=== PATIENT | female | born 1955 | race African-American/Black ===

== ENCOUNTER 2017-02-25 12:09 | Emergency (ER) | payer OTHER, MEDICAID ==
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
[2017-02-25 15:58] VITALS: BP 116/76
== END 2017-02-25 15:55 | disposition home or self-care (01) ==
LOC: ER 12:09
DX: S13.4XXA Sprain of ligaments of cervical spine, initial encounter (principal); M54.2 Cervicalgia; M54.41 Lumbago with sciatica, right side; V49.60XA Unspecified car occupant injured in collision with unspecified motor vehicles in traffic accident, initial encounter; M62.830 Muscle spasm of back; M47.9 Spondylosis, unspecified
CPT/HCPCS: 72040; 72110; 99283

== ENCOUNTER → 2017-07-17 | Outpatient (CLI) | payer MEDICARE, MEDICAID ==
--- NOTE | 2017-07-17 16:31 | WOMENS IMAGING REPORT ---
EXAM DESCRIPTION: BILAT SCREENING MAMMO W/CAD COMPLETED DATE/TIME: 07/17/2017 1:07 pm REASON FOR STUDY: ROUTINE SCREENING;Z12.31 Z12.31 ENCNTR SCREEN MAMMOGRAM FOR MALIGNANT NEOPLASM OF DANITZA COMPARISON: 2012, 2014 TECHNIQUE: Standard craniocaudal and mediolateral oblique views of each breast recorded using [facility] acquisition. LIMITATIONS: None. FINDINGS: No masses, calcifications or architectural distortion. No areas of suspicion. Read with the assistance of CAD. .[facility] - R2 Cenova Version 1.3 .[facility] - R2 Cenova Version 1.3 .[facility] - R2 Cenova Version 2.4 .[facility] - R2 Cenova Version 2.4 .[facility] - R2 Psychiatric Clinical Nurse Specialist Version 9.2 IMPRESSION: NORMAL MAMMOGRAM. BIRADS 1. BREAST DENSITY: b. There are scattered areas of fibroglandular density. BIRAD: 1 NEGATIVE RECOMMENDATION: ROUTINE SCREENING COMMENT: The patient has been notified of the results by letter per SA requirements. Additional no tification policies are in place for contacting patient with suspicious or incomplete findings. Quality ID #[id number]: [employer] [place] [employer] recommends an annual screening mammogram for women aged 40 years or over. This facility utilizes a reminder system to ensure that all patients receive reminder letters, and/or direct phone calls for appointments. This includes reminders for routine scr eening mammograms, diagnostic mammograms, or other Breast Imaging Interventions when appropriate. Th is patient will be placed in the appropriate reminder system. [employer] [place] [employer] (ACR) has developed recommendations for screening MRI of the breast s in certain patient populations, to be used in conjunction with mammography. Breast MRI surveillanc e may be appropriate for women with more than 20% lifetime risk of developing breast cancer as deter mined by genetic testing, significant family history of the disease, or history of mantle radiation f or Hodgkins Disease. ACR Practice Guidelines 2008. TECHNICAL DOCUMENTATION: FINDING NUMBER: (1) ASSESSMENT: (1) JOB ID: [id number] [employer]- All Rights Reserved Reading location - IP/workstation name: [email or web address]
== END ==
LOC: WI 12:34
PROVIDERS: ATTEND Family Medicine
DX: Z12.31 Encounter for screening mammogram for malignant neoplasm of breast (principal)
CPT/HCPCS: 77067

== ENCOUNTER 2018-08-24 07:05 | Emergency (ER) | payer MEDICARE, MEDICAID ==
--- NOTE | 2018-08-24 08:18 | ER Document Report ---
ED Extremity Problem, Lower - General Chief Complaint: Leg Pain Stated Complaint: LEG PAIN Time Seen by Provider: 08/24/18 08:17 Primary Care Provider: ELLIE MERCADO MD [Primary Care Provider] - Follow up as needed Notes: 62-year-old female patient emergency department chief complaint of right leg/calf pain. Radiates behind the calf and up behind her leg on the right side. No back pain. No trauma. No prior history of blood clots or DVTs. States that it feels like a charley horse but will not go away. TRAVEL OUTSIDE OF THE [place] IN LAST 30 DAYS: No - HPI Patient complains to provider of: Pain Location: Leg Occurred: Yesterday Where: Home Onset/Duration: Gradual, Worse Quality of pain: Achy Severity: Moderate Pain Level: 3 Recent injury: No Associated symptoms: denies: Chest pain, Rapid heart rate, Short of breath - Related Data Allergies/Adverse Reactions: No Known Allergies Allergy (Unverified 11/09/12 14:10) Past Medical History - General Information source: Patient - Social History Smoking Status: Current Every Day Smoker Chew tobacco use (# tins/day): No Frequency of alcohol use: None Drug Abuse: None Lives with: Spouse/Significant other Family History: Reviewed & Not Pertinent Patient has suicidal ideation: No Patient has homicidal ideation: No - Past Medical History Cardiac Medical History: Pulmonary Medical History: Neurological Medical History: Renal/ Medical History: Denies: Hx Peritoneal Dialysis GI Medical History: Infectious Medical History: Past Surgical History: Review of Systems - Review of Systems Notes: Constitutional: denies: Chills, Diaphoresis, Fever, Malaise, Weakness EENT: denies: Eye discharge, Blurred vision, Tearing, Double vision, Nose congestion, Nose discharge, Throat swelling, Mouth pain Cardiovascular: denies: Palpitations, Heart racing, Orthopnea, Dyspnea, Chest pain Respiratory: denies: Cough, Hurts to breathe, Wheezing, Shortness of breath Gastrointestinal: denies: Abdominal pain, Diarrhea, Nausea, Vomiting, Black stools, bright red blood in stool Genitourinary: denies: Burning, Dysuria, Discharge, Frequency, Flank pain, Hematuria Musculoskeletal: denies: Joint pain, Joint swelling, +Muscle pain,+ Muscle stiffness,- back pain Hematologic/Lymphatic: denies: Anemia, Easy bleeding, Easy bruising, Blood clots Neurological/Psychological: denies: Confusion, Dementia, Depression, Loss of consciousness Skin: No lesions, no masses, no skin breakdown, no abscesses Physical Exam - Vital signs Vitals: Temp Pulse Resp BP Pulse Ox 97.4 F 78 18 125/76 96 08/24/18 07:10 08/24/18 07:10 08/24/18 07:10 08/24/18 07:10 08/24/18 07:10 Interpretation: Normal - General General appearance: Appears well, Alert - HEENT Head: Normocephalic, Atraumatic Eyes: Normal Pupils: PERRL - Respiratory Respiratory status: No respiratory distress Chest status: Nontender Breath sounds: Normal Chest palpation: Normal - Cardiovascular Rhythm: Regular Heart sounds: Normal auscultation Murmur: No - Abdominal Inspection: Normal Distension: No distension Bowel sounds: Normal Tenderness: Nontender Organomegaly: No organomegaly - Back Back: Normal, Nontender - Extremities General upper extremity: Normal inspection, Nontender, Normal color, Normal ROM, Normal temperature. No: Edema General lower extremity: Normal inspection, Tender - Tenderness to palpation in the right posterior calf, Normal color, Normal ROM, Normal temperature, Normal weight bearing. No: Edema, Hannah's sign - Neurological Neuro grossly intact: Yes Cognition: Normal Orientation: AAOx4 Bruce Coma Scale Eye Opening: Spontaneous [place] Coma Scale Verbal: Oriented Bruce Coma Scale Motor: Obeys Commands [place] Coma Scale Total: 15 Speech: Normal Motor strength normal: LUE, RUE, LLE, RLE Sensory: Normal - Psychological Associated symptoms: Normal affect, Normal mood - Skin Skin Temperature: Warm Skin Moisture: Dry Skin Color: Normal Course - Re-evaluation Re-evalutation: 08/24/18 10:24 Verbal report from the certified cytotechnologist is that there is no evidence of a DVT. At this time I am treating with some pain medication. Find nothing further at this time. Has good pulses. Will discharge in stable condition with right calf pain. - Vital Signs Vital signs: Temp Pulse Resp BP Pulse Ox 98.2 F 78 16 125/76 96 08/24/18 08:10 08/24/18 07:10 08/24/18 08:10 08/24/18 07:10 08/24/18 07:10 Discharge - Discharge Clinical Impression: Right leg pain Condition: Good Disposition: HOME, SELF-CARE Instructions: Leg Pain Nonspecific ([facility]) Additional Instructions: No evidence of DVT. At this time uncertain etiology of the pain. It would be very important that you follow-up with your primary care doctor. You may need a repeat ultrasound in 7 to 10 days to make sure there is no blood clot. I am prescribing you a short course of some anti-inflammatory and pain medication that you can take. Please follow-up with your regular doctor. Return for worsening symptoms or concerns per Prescriptions: Hydrocodone/Acetaminophen [Emerson 5-325 mg Tablet] 1 tab PO TID PRN 3 Days #9 tablet PRN Reason: For Breakthrough Pain Ibuprofen [Motrin 800 mg Tablet] 800 mg PO Q8H PRN 7 Days #21 tab PRN Reason: For Pain Scale 3-4 Referrals: ELLIE MERCADO MD [Primary Care Provider] - Follow up as needed
[2018-08-24] MEDS ORDERED: KETOROLAC TROMETHAMINE 60 MG/2 ML SDV IM ONE (08:32)
[2018-08-24] MEDS ORDERED: HYDROCODONE/ACETAMINOPHEN 5-325 MG TABLET PO ONE (08:32)
[2018-08-24 10:35] VITALS: BP 117/63
--- NOTE | 2018-08-24 10:59 | RADIOLOGY REPORT (SQ) ---
EXAM DESCRIPTION: VENOUS UNILATERAL LOWER COMPLETED DATE/TIME: 08/24/2018 10:49 am REASON FOR STUDY: right leg/calf pain COMPARISON: None. TECHNIQUE: Dynamic and static pitt scale and color images acquired of the right leg venous system. S elected spectral images acquired with additional compression and augmentation maneuvers. The contrala teral common femoral vein and saphenofemoral junction were also imaged. Images stored on PACS. LIMITATIONS: None. FINDINGS: COMMON FEMORAL: Normal phasicity, compression and augmentation. No visualized echogenic ma terial on pitt scale. No defects on color images. FEMORAL: Normal compression and augmentation. No visualized echogenic material on pitt scale. No defe cts on color images. POPLITEAL: Normal compression, augmentation. No visualized echogenic material on pitt scale. No defec ts on color images. CALF VESSELS: Normal compression, augmentation. No visualized echogenic material on pitt scale. No de fects on color images. GSV and SSV: Normal compression, augmentation. No visualized echogenic material on pitt scale. No def ects on color images. ANY DEEP VENOUS INSUFFICIENCY: No. ANY EVIDENCE OF POPLITEAL CYST: No. OTHER: No other significant finding. CONTRALATERAL COMMON FEMORAL VEIN AND SAPHENOFEMORAL JUNCTION: Normal phasicity, compression and augmentation. No visualized echogenic material on pitt scale. No de fects on color images. IMPRESSION: NO EVIDENCE OF DVT OR SVT IN THE RIGHT LEG. TECHNICAL DOCUMENTATION: JOB ID: [id number] [employer]- All Rights Reserved Reading location - IP/workstation name: [email or web address]
== END 2018-08-24 10:35 | disposition home or self-care (01) ==
LOC: ER 07:05
DX: M79.604 Pain in right leg (principal); F17.200 Nicotine dependence, unspecified, uncomplicated
CPT/HCPCS: 99283; 96372; 93971; J1885; A9270

== ENCOUNTER 2018-09-05 05:22 | Inpatient (IN) | payer MEDICARE, MEDICAID ==
[2018-09-05 06:15] LABS: APPEARANCE,URINE CLOUDY; BILIRUBIN,URINE NEGATIVE (NEGATIVE); COLOR,URINE YELLOW; GLUCOSE, URINE NEGATIVE (NEGATIVE); KETONES,URINE NEGATIVE (NEGATIVE); LEUKOCYTE ESTERASE,URINE NEGATIVE (NEGATIVE); NITRITE,URINE NEGATIVE (NEGATIVE); PROTEIN,URINE NEGATIVE (NEGATIVE); URINE SPECIFIC GRAVITY 1.013
[2018-09-05 07:02] LABS: ABSOLUTE BASOPHILS # (AUTO) 0.1 10^3/uL (0.0-0.2); ABSOLUTE EOSINOPHILS # (AUTO) 0.1 10^3/uL (0.0-0.6); ABSOLUTE LYMPHOCYTES (AUTO) 2.6 10^3/uL (0.5-4.7); ABSOLUTE MONOCYTES (AUTO) 0.8 10^3/uL (0.1-1.4); ABSOLUTE NEUT (AUTO) 6.7 10^3/uL (1.7-8.2); BASOPHILS % (AUTO) 0.6 % (0-2); EOSINOPHILS % (AUTO) 0.8 % (0-6); HEMATOCRIT 44.8 % (36.0-47.0); HEMOGLOBIN 15.3 g/dL (12.0-15.5); LYMPHOCYTES % (AUTO) 25.5 % (13-45); MEAN CORPUSCULAR HEMOGLOBIN 32.3 pg (27.0-33.4); MEAN CORPUSCULAR HGB CONC 34.1 g/dL (32.0-36.0); MEAN CORPUSCULAR VOLUME 95 fl (80-97); MONOCYTES % (AUTO) 7.9 % (3-13); PLATELET COUNT 257 10^3/uL (150-450); RED BLOOD COUNT 4.73 10^6/uL (3.72-5.28); SEGMENTED NEUTROPHILS % (AUTO) 65.2 % (42-78); TOTAL CELLS COUNTED % (AUTO) 100 %; WHITE BLOOD COUNT 10.3 10^3/uL (4.0-10.5)
[2018-09-05] MEDS ORDERED: ASPIRIN 81 MG TABLET, CHEWABLE PO ONE ×2 (07:03→07:32)
[2018-09-05] MEDS ORDERED: NORMAL SALINE 1000 ML 1,000 ML IV ONE (07:13)
[2018-09-05] MEDS ORDERED: ONDANSETRON HCL INJ/PF 4 MG/2 ML SDV IV ONE (07:13)
[2018-09-05] MEDS ORDERED: MORPHINE SULFATE 10 MG/ML INJ IV ONE (07:14)
[2018-09-05 07:19] LABS: ALANINE AMINOTRANSFERASE 45 U/L (9-52); ALBUMIN 4.1 g/dL (3.5-5.0); ALKALINE PHOSPHATASE 108 U/L (38-126); ANION GAP 7 (5-19); ASPARTATE AMINO TRANSFERASE 43 U/L (14-36); BLOOD UREA NITROGEN 12 mg/dL (7-20); CALCIUM 9.4 mg/dL (8.4-10.2); CARBON DIOXIDE 28 mmol/L (22-30); CHLORIDE 104 mmol/L (98-107); GLUCOSE 91 mg/dL (75-110); POTASSIUM 3.5 mmol/L (3.6-5.0); SODIUM 139.1 mmol/L (137-145)
[2018-09-05 07:20] LABS: BILIRUBIN,DIRECT 0.3 mg/dL (0.0-0.4); BILIRUBIN,TOTAL 0.6 mg/dL (0.2-1.3); TOTAL PROTEIN 7.5 g/dL (6.3-8.2)
[2018-09-05 07:36] LABS: LIPASE 6991.1 U/L (23-300)
--- NOTE | 2018-09-05 07:37 | ER Document Report ---
ED Medical Screen (RME) - General Chief Complaint: Abdominal Pain Stated Complaint: STOMACH ACHE Time Seen by Provider: 09/05/18 07:12 Primary Care Provider: ELLIE MERCADO MD [Primary Care Provider] - Follow up as needed Notes: Patient is a 62-year-old female who presents the emergency department with a chief complaint of abdominal pain. She states her pain started 6 to 7 hours prior to arrival to the emergency department. Her pain is in her mid abdomen and it radiates to her back. She states that her last problem was today. She does have some nausea and she vomited once. According to the nursing staff, she also complained of chest pain. Exam: Tenderness noted to abdomen. I have greeted and performed a rapid initial assessment of this patient. A comprehensive ED assessment and evaluation of the patient, analysis of test results and completion of medical decision making process will be conducted by an additional ED providers. TRAVEL OUTSIDE OF THE [place] IN LAST 30 DAYS: No - Related Data Allergies/Adverse Reactions: No Known Allergies Allergy (Unverified 11/09/12 14:10) Past Medical History - Past Medical History Cardiac Medical History: Pulmonary Medical History: Neurological Medical History: Renal/ Medical History: Denies: Hx Peritoneal Dialysis GI Medical History: Infectious Medical History: Past Surgical History: Physical Exam - Vital signs Vitals: Temp Pulse Resp BP Pulse Ox 97.6 F 84 32 H 139/94 H 99 09/05/18 05:29 09/05/18 05:29 09/05/18 05:29 09/05/18 05:29 09/05/18 05:29 Course - Vital Signs Vital signs: Temp Pulse Resp BP Pulse Ox 97.6 F 84 23 H 153/92 H 99 09/05/18 05:29 09/05/18 05:29 09/05/18 07:01 09/05/18 07:00 09/05/18 05:29 - Laboratory Result Diagrams: 09/05/18 06:50 09/05/18 06:50 Laboratory results interpreted by me: 09/05/18 09/05/18 05:58 06:50 Potassium 3.5 L AST 43 H Lipase 6991.1 H Urine Urobilinogen 2.0 H Doctor's Discharge - Discharge Referrals: ELLIE MERCADO MD [Primary Care Provider] - Follow up as needed
--- NOTE | 2018-09-05 07:47 | ER Document Report ---
ED Medical Screen (RME) - General Chief Complaint: Abdominal Pain Stated Complaint: STOMACH ACHE Time Seen by Provider: 09/05/18 07:12 Primary Care Provider: ELLIE MERCADO MD [Primary Care Provider] - Follow up as needed TRAVEL OUTSIDE OF THE [place] IN LAST 30 DAYS: No - Related Data Allergies/Adverse Reactions: No Known Allergies Allergy (Unverified 11/09/12 14:10) Past Medical History - Past Medical History Cardiac Medical History: Pulmonary Medical History: Neurological Medical History: Renal/ Medical History: Denies: Hx Peritoneal Dialysis GI Medical History: Infectious Medical History: Past Surgical History: Physical Exam - Vital signs Vitals: Temp Pulse Resp BP Pulse Ox 97.6 F 84 32 H 139/94 H 99 09/05/18 05:29 09/05/18 05:29 09/05/18 05:29 09/05/18 05:29 09/05/18 05:29 Course - Vital Signs Vital signs: Temp Pulse Resp BP Pulse Ox 97.6 F 84 23 H 153/92 H 99 09/05/18 05:29 09/05/18 05:29 09/05/18 07:01 09/05/18 07:00 09/05/18 05:29 - Laboratory Result Diagrams: 09/05/18 06:50 09/05/18 06:50 Laboratory results interpreted by me: 09/05/18 09/05/18 05:58 06:50 Potassium 3.5 L AST 43 H Lipase 6991.1 H Urine Urobilinogen 2.0 H Doctor's Discharge - Discharge Referrals: ELLIE MERCADO MD [Primary Care Provider] - Follow up as needed
--- NOTE | 2018-09-05 07:48 | ER Document Report ---
ED General - General Chief Complaint: Abdominal Pain Stated Complaint: STOMACH ACHE Time Seen by Provider: 09/05/18 07:12 Notes: Patient is a 62-year-old female who presents the emergency department with a chief complaint of abdominal pain. She states her pain started 6 to 7 hours prior to arrival to the emergency department. Her pain is in her mid abdomen and it radiates to her back. She states that her last problem was today. She does have some nausea and she vomited once. According to the nursing staff, she also complained of chest pain. Patient reports that she drinks 1-2 beers every day. She also admits to cocaine use. TRAVEL OUTSIDE OF THE [place] IN LAST 30 DAYS: No - Related Data Allergies/Adverse Reactions: No Known Allergies Allergy (Unverified 11/09/12 14:10) Past Medical History - Social History Smoking Status: Unknown if Ever Smoked Family History: Reviewed & Not Pertinent Patient has suicidal ideation: No Patient has homicidal ideation: No - Past Medical History Cardiac Medical History: Pulmonary Medical History: Neurological Medical History: Renal/ Medical History: Denies: Hx Peritoneal Dialysis GI Medical History: Infectious Medical History: Past Surgical History: Review of Systems - Review of Systems Notes: REVIEW OF SYSTEMS: CONSTITUTIONAL : Denies recent illness. Denies recent unintentional weight loss. Denies fever, chills, or sweats. EENT: Denies eye, ear, throat, or mouth pain, discharge, or symptoms. Denies nasal or sinus congestion. CARDIOVASCULAR: See HPI RESPIRATORY: Denies shortness of breath, cough, congestion, difficulty b reathing, or wheezing. GASTROINTESTINAL: See HPI GENITOURINARY: Denies difficulty urinating, burning, blood in urine, urgency or frequency. MUSCULOSKELETAL: Denies neck and back pain. Denies joint pain or swelling. SKIN: Denies rash, itchiness, or lesions HEMATOLOGIC : Denies easy bruising or bleeding. LYMPHATIC: Denies swollen, painful, enlarged glands. NEUROLOGICAL: Denies no numbness or tingling denies weakness. Denies headache. Denies altered mental status. Denies alteration in speech. PSYCHIATRIC: Denies stress, anxiety, alteration in sleep patterns, or depression. All other systems reviewed and negative. Physical Exam - Vital signs Vitals: Temp Pulse Resp BP Pulse Ox 97.6 F 84 32 H 139/94 H 99 09/05/18 05:29 09/05/18 05:29 09/05/18 05:29 09/05/18 05:29 09/05/18 05:29 - Notes Notes: PHYSICAL EXAMINATION: GENERAL: Appears well, healthy, well-nourished, no acute distress. HEAD: Normocephalic, atraumatic. EYES: PERRL, conjunctiva normal, all extraocular movements intact, sclera nonicteric ENT: Dry mucous membranes. NECK: Supple, no noticeable swelling, redness, rash. Normal range of motion. LUNGS: Equal breath sounds bilaterally and clear to auscultation. No wheezes rales or rhonchi. CARDIOVASCULAR: S1-S2, regular rate, regular rhythm. Radial pulses 2+, normal. ABDOMEN: Normoactive bowel sounds. Soft, tender mid upper abdomen, no guarding, no rebound tenderness, and no masses palpated. EXTREMITIES: Normal strength and range of motion, no pitting or edema. No cyanosis. NEUROLOGICAL: Moves all extremities upon command. Strength 5/5 in all extremities. PSYCH: Normal mood, normal affect. SKIN: Warm, dry. No rash, lesions, ulcerations noted. Normal skin turgor. Course - Re-evaluation Re-evalutation: 09/05/18 07:50 Patient's lipase is greater than 6000. Claudia is able to open up to me and tell me that she drinks 2 beers a day. She also smokes cocaine. CBC is unremarkable. Chemistries are also unremarkable. 09/05/18 08:22 Patient's troponin is negative at this time. Her CK is mildly elevated, most likely due to her having abdominal pain. Her chest x-ray shows atelectasis, most likely because she is not taking good deep breaths and due to her pain. I spoke with Dr. Rojas and the patient will be admitted to the medical floor. - Vital Signs Vital signs: Temp Pulse Resp BP Pulse Ox 98.0 F 84 17 145/91 H 100 09/05/18 09:00 09/05/18 05:29 09/05/18 09:01 09/05/18 09:00 09/05/18 09:01 - Laboratory Result Diagrams: 09/05/18 06:50 09/05/18 06:50 Laboratory results interpreted by me: 09/05/18 09/05/18 09/05/18 05:58 06:50 06:50 Potassium 3.5 L AST 43 H Creatine Kinase 164 H Lipase 6991.1 H Urine Urobilinogen 2.0 H - EKG Interpretation by Me Additional EKG results interpreted by me: 09/05/18 07:53 Sinus rhythm. Rate 82. VT 132; QRS 84; QT 380; QTc 444. No ST elevations or depressions noted. Discharge - Discharge Clinical Impression: Cocaine abuse Alcoholic pancreatitis Qualifiers: Chronicity: acute Acute pancreatitis complication: unspecified Qualified Code(s): K85.20 - Alcohol induced acute pancreatitis without necrosis or in fection Abdominal pain Qualifiers: Abdominal location: epigastric Qualified Code(s): R10.13 - Epigastric pain Chest pain Qualifiers: Chest pain type: other chest pain Qualified Code(s): R07.89 - Other chest pain Condition: Stable Disposition: ADMITTED INPATIENT Admitting Provider: Crystal (Hospitalist) Unit Admitted: Medical Floor
--- NOTE | 2018-09-05 08:08 | RADIOLOGY REPORT (SQ) ---
EXAM DESCRIPTION: CHEST SINGLE VIEW COMPLETED DATE/TIME: 09/05/2018 7:53 am REASON FOR STUDY: chest pain COMPARISON: None. EXAM PARAMETERS: NUMBER OF VIEWS: One view. TECHNIQUE: Single frontal radiographic view of the chest acquired. RADIATION DOSE: NA LIMITATIONS: None. FINDINGS: LUNGS AND PLEURA: No opacities, masses or pneumothorax. No pleural effusion. Bibasilar at electasis. MEDIASTINUM AND HILAR STRUCTURES: No masses. Contour normal. HEART AND VASCULAR STRUCTURES: Heart normal in size. Normal vasculature. BONES: No acute findings. HARDWARE: None in the chest. OTHER: No other significant finding. IMPRESSION: Bibasilar atelectasis. TECHNICAL DOCUMENTATION: JOB ID: [id number] [employer]- All Rights Reserved Reading location - IP/workstation name: [email or web address]
[2018-09-05 08:13] LABS: CREATINE KINASE MB 0.97 ng/mL (<4.55)
[2018-09-05 08:14] LABS: TROPONIN I < 0.012 ng/mL
[2018-09-05 08:21] LABS: URINE AMPHETAMINES SCREEN NEGATIVE; URINE BARBITURATES SCREEN NEGATIVE; URINE BENZODIAZEPINES SCREEN NEGATIVE; URINE COCAINE SCREEN UNCONFIRMED POSITIVE; URINE MARIJUANA (THC) SCREEN NEGATIVE; URINE METHADONE SCREEN NEGATIVE; URINE PHENCYCLIDINE SCREEN NEGATIVE
[2018-09-05] MEDS ORDERED: IPRATROPIUM/ALBUTEROL 0.5-2.5 MG/3 ML AMPUL NEB PRN (10:26)
[2018-09-05] MEDS ORDERED: TEMAZEPAM 7.5 MG CAPSULE PO PRN (10:26)
[2018-09-05] MEDS ORDERED: ONDANSETRON HCL INJ/PF 4 MG/2 ML SDV IV PRN (10:26)
[2018-09-05] MEDS ORDERED: PROMETHAZINE HCL INJ 25 MG/1 ML VIAL IV PRN (10:26)
--- NOTE | 2018-09-05 12:13 | EKG REPORT ---
SEVERITY:- NORMAL ECG - SINUS RHYTHM : Confirmed by: Lydia Akers MD 05-Sep-2018 12:12:44
[2018-09-05] MEDS: MORPHINE SULFATE 10 MG/ML INJ IV PRN ×3 (12:26→20:54)
[2018-09-05 12:31] LABS: CHOLESTEROL 206.68 mg/dL (0-200); TRIGLYCERIDES 138 mg/dL (<150)
[2018-09-05] MEDS: THIAMINE HCL 100 MG TABLET PO SCH (12:38)
[2018-09-05] MEDS: FOLIC ACID 1 MG TABLET PO SCH (12:38)
[2018-09-05] MEDS: NORMAL SALINE 1000 ML 1,000 ML IV PRN ×3 (12:39→22:50)
[2018-09-05 12:42] LABS: DIRECT LDL 60 mg/dL (<100)
[2018-09-05] MEDS: PANTOPRAZOLE SODIUM 40 MG TABLET.DR PO SCH (17:42)
--- NOTE | 2018-09-05 18:27 | PDOC H&P ---
History of Present Illness Admission Date/PCP: 09/05/18 08:48 History of Present Illness: JANETH NESS is a 62 year old female past medical history of EtOH abuse, cocaine abuse, presenting to ED complaining of abdominal pain starting 7 hours prior to arrival, associated with with nausea and nonbilious nonbloody vomiting. She has been drinking about 1-2 beers every day since she was very young, occasionally does binge drinking. Last binge drinking x1 week, admits to using cocaine. She describes the pain as sharp, 8/10, constant, radiating to her back, worse with movement and eating, better with rest. She is nauseous and vomited once however she is able to tolerate p.o. intake. She passes flatus but has not had a bowel movement. Denies any fever, chills, nausea, vomiting, diarrhea, constipation, hyperlipidemia, abdominal trauma, prior pancreatitis. Past Medical History Cardiac Medical History: Pulmonary Medical History: Neurological Medical History: GI Medical History: Psychiatric Medical History: Reports: Depression Hematology: Past Surgical History Past Surgical History: Social History Smoking Status: Current Some Day Smoker Cigarettes Packs Per Day: 0.2 Number of Years Smokin Last Time Smoked: yesterday Frequency of Alcohol Use: Heavy Hx Recreational Drug Use: Yes Drugs: Cocaine Hx Prescription Drug Abuse: No Family History Family History: Reviewed & Not Pertinent Parental Family History Reviewed: Yes Children Family History Reviewed: Yes Sibling(s) Family History Reviewed.: Yes Medication/Allergy Home Medications: Ascorbic Acid [Vitamin C 500 mg Tablet] 500 mg PO DAILY 09/05/18 Cyanocobalamin (Vitamin B-12) [Vitamin B-12 1000 Mcg Tablet] 1,000 mcg PO DAILY 09/05/18 Allergies/Adverse Reactions: No Known Allergies Allergy (Unverified 11/09/12 14:10) Review of Systems Review of Systems: as per hpi Physical Exam Vital Signs: Temp Pulse Resp BP Pulse Ox 98.2 F 84 20 130/86 H 93 09/05/18 12:00 09/05/18 12:23 09/05/18 12:23 09/05/18 12:00 09/05/18 12:23 Intake & Output 09/04/18 09/05/18 09/06/18 06:59 06:59 06:59 Intake Total 1999 Balance 1999 Weight 68.039 kg General appearance: PRESENT: no acute distress, well-developed, well-nourished Head exam: PRESENT: atraumatic, normocephalic Respiratory exam: PRESENT: clear to auscultation thanh. ABSENT: rales, rhonchi, wheezes Cardiovascular exam: PRESENT: RRR. ABSENT: diastolic murmur, rubs, systolic murmur GI/Abdominal exam: PRESENT: guarding, normal bowel sounds, soft, tenderness. ABSENT: distended, mass, organolmegaly, rebound Extremities exam: PRESENT: full ROM. ABSENT: calf tenderness, clubbing, pedal edema Neurological exam: PRESENT: alert, awake, oriented to person, oriented to place, oriented to time, oriented to situation, CN II-XII grossly intact. ABSENT: motor sensory deficit Skin exam: PRESENT: dry, intact, warm. ABSENT: cyanosis, rash Results Laboratory Results: 09/05/18 06:50 09/05/18 06:50 09/05/18 09/05/18 09/05/18 05:58 06:50 06:50 WBC 10.3 RBC 4.73 Hgb 15.3 Hct 44.8 MCV 95 MCH 32.3 MCHC 34.1 RDW 13.0 Plt Count 257 Seg Neutrophils % 65.2 Lymphocytes % 25.5 Monocytes % 7.9 Eosinophils % 0.8 Basophils % 0.6 Absolute Neutrophils 6.7 Absolute Lymphocytes 2.6 Absolute Monocytes 0.8 Absolute Eosinophils 0.1 Absolute Basophils 0.1 Sodium 139.1 Potassium 3.5 L Chloride 104 Carbon Dioxide 28 Anion Gap 7 BUN 12 Creatinine 0.64 Est GFR ( Amer) > 60 Est GFR (Non-Af Amer) > 60 Glucose 91 Calcium 9.4 Total Bilirubin 0.6 AST 43 H ALT 45 Alkaline Phosphatase 108 Total Protein 7.5 Albumin 4.1 Triglycerides Cholesterol LDL Cholesterol Direct VLDL Cholesterol HDL Cholesterol Lipase 6991.1 H Urine Color YELLOW Urine Appearance CLOUDY Urine pH 9.0 Ur Specific [place] 1.013 Urine Protein NEGATIVE Urine Glucose (UA) NEGATIVE Urine Ketones NEGATIVE Urine Blood NEGATIVE Urine Nitrite NEGATIVE Ur Leukocyte Esterase NEGATIVE Urine WBC (Auto) 2 Urine RBC (Auto) 0 09/05/18 06:50 WBC RBC Hgb Hct MCV MCH MCHC RDW Plt Count Seg Neutrophils % Lymphocytes % Monocytes % Eosinophils % Basophils % Absolute Neutrophils Absolute Lymphocytes Absolute Monocytes Absolute Eosinophils Absolute Basophils Sodium Potassium Chloride Carbon Dioxide Anion Gap BUN Creatinine Est GFR ( Amer) Est GFR (Non-Af Amer) Glucose Calcium Total Bilirubin AST ALT Alkaline Phosphatase Total Protein Albumin Triglycerides 138 Cholesterol 206.68 H LDL Cholesterol Direct 60 VLDL Cholesterol 28.0 HDL Cholesterol 115 Lipase Urine Color Urine Appearance Urine pH Ur Specific [place] Urine Protein Urine Glucose (UA) Urine Ketones Urine Blood Urine Nitrite Ur Leukocyte Esterase Urine WBC (Auto) Urine RBC (Auto) 09/05/18 09/05/18 06:50 06:50 Creatine Kinase 164 H CK-MB (CK-2) 0.97 Troponin I < 0.012 Impressions: Chest X-Ray 09/05/18 07:06 IMPRESSION: Bibasilar atelectasis. Assessment and Plan - Diagnosis (1) Acute alcoholic pancreatitis Qualifiers: Acute pancreatitis complication: unspecified Qualified Code(s): K85.20 - Alcohol induced acute pancreatitis without necrosis or infection Is this a current diagnosis for this admission?: Yes Plan: Likely induced by recent binge drinking. Aggressive volume resuscitation guided by volume status, opioid analgesics, monitor electrolytes, advance diet as tolerated, antiemetics. (2) ETOH abuse Is this a current diagnosis for this admission?: Yes Plan: Current every day drinker. Drinks about 1-2 beers per day. Monitor for withdrawal. Thiamine and folic acid. Benzos as needed. (3) Cocaine abuse Is this a current diagnosis for this admission?: No Plan: EKG NSR. Troponins <0.012. UDS positive for cocaine. Denies any chest pain. Monitor for withdrawals.
[2018-09-06] MEDS: ACETAMINOPHEN 325 MG TABLET PO PRN (01:29)
[2018-09-06 05:02] LABS: HEMOGLOBIN 13.7 g/dL (12.0-15.5); MEAN CORPUSCULAR HEMOGLOBIN 32.4 pg (27.0-33.4); MEAN CORPUSCULAR HGB CONC 34.3 g/dL (32.0-36.0); MEAN CORPUSCULAR VOLUME 95 fl (80-97); PLATELET COUNT 195 10^3/uL (150-450); RED BLOOD COUNT 4.24 10^6/uL (3.72-5.28); RED CELL DISTRIBUTION WIDTH 12.9 % (11.5-14.0); WHITE BLOOD COUNT 8.5 10^3/uL (4.0-10.5)
[2018-09-06 05:21] LABS: ANION GAP 6 (5-19); BLOOD UREA NITROGEN 8 mg/dL (7-20); CALCIUM 8.2 mg/dL (8.4-10.2); CARBON DIOXIDE 25 mmol/L (22-30); CHLORIDE 106 mmol/L (98-107); GLUCOSE 87 mg/dL (75-110); POTASSIUM 3.6 mmol/L (3.6-5.0); SODIUM 136.7 mmol/L (137-145)
[2018-09-06] MEDS: MORPHINE SULFATE 10 MG/ML INJ IV PRN ×4 (05:31→23:10)
[2018-09-06] MEDS: PANTOPRAZOLE SODIUM 40 MG TABLET.DR PO SCH ×2 (05:32→16:39)
[2018-09-06] MEDS: NORMAL SALINE 1000 ML 1,000 ML IV PRN ×2 (09:16→20:40)
[2018-09-06] MEDS: FOLIC ACID 1 MG TABLET PO SCH (09:29)
[2018-09-06] MEDS: THIAMINE HCL 100 MG TABLET PO SCH (09:29)
[2018-09-06] MEDS: ENOXAPARIN SODIUM INJ 40 MG/0.4 ML DISP.SYRIN SUBCUT SCH (09:29)
--- NOTE | 2018-09-06 11:36 | PDOC PROGRESS REPORT ---
Subjective Progress Note for:: 09/06/18 Reason For Visit: JANETH NESS is a 62 year old female past medical history of EtOH abuse, cocaine abuse, presenting to ED complaining of abdominal pain starting 7 hours prior to arrival, associated with with nausea and nonbilious nonbloody vomiting. She has been drinking about 1-2 beers every day since she was very young, occasionally does binge drinking. Last binge drinking x1 week, admits to using cocaine. She describes the pain as sharp, 8/10, constant, radiating to her back, worse with movement and eating, better with rest. She is nauseous and vomited once however she is able to tolerate p.o. intake. She passes flatus but has not had a bowel movement. Denies any fever, chills, nausea, vomiting, diarrhea, constipation, hyperlipidemia, abdominal trauma, prior pancreatitis. 09/06/2018. No acute events overnight. Patient is still reporting persistent epigastric abdominal pain, much improved since yesterday, has not passed flatus, has not had a bowel movement, was able to tolerate clear liquid. Denies any fever, chills, nausea, vomiting, diarrhea, constipation or any urinary symptoms. Physical Exam Vital Signs: Temp Pulse Resp BP Pulse Ox 98.2 F 99 18 123/75 93 09/06/18 08:00 09/06/18 09:20 09/06/18 09:20 09/06/18 08:00 09/06/18 09:20 Intake & Output 09/05/18 09/06/18 09/07/18 06:59 06:59 06:59 Intake Total 4000 Balance 4000 Weight 68.039 kg 71.4 kg General appearance: PRESENT: no acute distress, well-developed, well-nourished Head exam: PRESENT: atraumatic, normocephalic Eye exam: PRESENT: conjunctiva pink, EOMI, PERRLA. ABSENT: scleral icterus Ear exam: PRESENT: normal external ear exam Mouth exam: PRESENT: moist, tongue midline Neck exam: ABSENT: carotid bruit, JVD, lymphadenopathy, thyromegaly Respiratory exam: PRESENT: clear to auscultation thanh. ABSENT: rales, rhonchi, wheezes Cardiovascular exam: PRESENT: RRR. ABSENT: diastolic murmur, rubs, systolic murmur Pulses: PRESENT: normal dorsalis pedis pul Vascular exam: PRESENT: normal capillary refill GI/Abdominal exam: PRESENT: normal bowel sounds, tenderness - epigastric. ABSENT: distended, guarding, mass, organolmegaly, rebound Rectal exam: PRESENT: deferred Extremities exam: PRESENT: full ROM. ABSENT: calf tenderness, clubbing, pedal edema Neurological exam: PRESENT: alert, awake, oriented to person, oriented to place, oriented to time, oriented to situation, CN II-XII grossly intact. ABSENT: motor sensory deficit Psychiatric exam: PRESENT: appropriate affect, normal mood. ABSENT: homicidal ideation, suicidal ideation Skin exam: PRESENT: dry, intact, warm. ABSENT: cyanosis, rash Results Laboratory Results: 09/06/18 04:36 09/06/18 04:36 09/05/18 09/06/18 09/06/18 06:50 04:36 04:36 WBC 8.5 RBC 4.24 Hgb 13.7 Hct 40.0 MCV 95 MCH 32.4 MCHC 34.3 RDW 12.9 Plt Count 195 Sodium 136.7 L Potassium 3.6 Chloride 106 Carbon Dioxide 25 Anion Gap 6 BUN 8 Creatinine 0.58 Est GFR ( Amer) > 60 Est GFR (Non-Af Amer) > 60 Glucose 87 Calcium 8.2 L Triglycerides 138 Cholesterol 206.68 H LDL Cholesterol Direct 60 VLDL Cholesterol 28.0 HDL Cholesterol 115 09/05/18 09/05/18 06:50 06:50 Creatine Kinase 164 H CK-MB (CK-2) 0.97 Troponin I < 0.012 Impressions: Chest X-Ray 09/05/18 07:06 IMPRESSION: Bibasilar atelectasis. Assessment and Plan - Diagnosis (1) Acute alcoholic pancreatitis Qualifiers: Acute pancreatitis complication: unspecified Qualified Code(s): K85.20 - Alcohol induced acute pancreatitis without necrosis or infection Is this a current diagnosis for this admission?: Yes Plan: Improving. Tolerating clear liquid. Stating that has not passed flatus or had a bowel movement. Advance diet as tolerated. Continue volume resuscitation guided by volume status, opioid analgesics, monitor electrolytes and antiemetics. (2) ETOH abuse Is this a current diagnosis for this admission?: Yes Plan: Current every day drinker. Drinks about 1-2 beers per day. Monitor for withdrawal. Thiamine and folic acid. Benzos as needed. (3) Cocaine abuse Is this a current diagnosis for this admission?: No
[2018-09-07] MEDS: NORMAL SALINE 1000 ML 1,000 ML IV PRN ×5 (01:47→22:55)
[2018-09-07] MEDS: MORPHINE SULFATE 10 MG/ML INJ IV PRN ×5 (04:53→22:55)
[2018-09-07] MEDS: PANTOPRAZOLE SODIUM 40 MG TABLET.DR PO SCH ×2 (05:00→16:14)
[2018-09-07 05:05] LABS: ANION GAP 5 (5-19); BLOOD UREA NITROGEN 6 mg/dL (7-20); CALCIUM 7.9 mg/dL (8.4-10.2); CARBON DIOXIDE 24 mmol/L (22-30); CHLORIDE 106 mmol/L (98-107); GLUCOSE 88 mg/dL (75-110); POTASSIUM 3.3 mmol/L (3.6-5.0); SODIUM 135.1 mmol/L (137-145)
[2018-09-07] MEDS: ENOXAPARIN SODIUM INJ 40 MG/0.4 ML DISP.SYRIN SUBCUT SCH (09:08)
[2018-09-07] MEDS: THIAMINE HCL 100 MG TABLET PO SCH (09:09)
[2018-09-07] MEDS: FOLIC ACID 1 MG TABLET PO SCH (09:09)
--- NOTE | 2018-09-07 12:26 | PDOC PROGRESS REPORT ---
Subjective Progress Note for:: 09/07/18 Subjective:: 62-year-old female with history of alcohol abuse on inhibiting current daily basis admitted with acute pancreatitis. She is on clear liquids and on IV fluids receiving IV morphine every 4 as needed. No acute events during the last 24 hours. T-max is 99.8. Still complaining of pain 4-5/10. Reason For Visit: ACUTE ALCOHOLIC PANCREATITIS,ETOH ABUSE,COCAINE Physical Exam Vital Signs: Temp Pulse Resp BP Pulse Ox 98.1 F 97 16 126/77 H 93 09/07/18 08:00 09/07/18 09:15 09/07/18 09:15 09/07/18 08:00 09/07/18 09:15 Intake & Output 09/06/18 09/07/18 09/08/18 06:59 06:59 06:59 Intake Total 4000 4090 Balance 4000 4090 Weight 71.4 kg 71.1 kg General appearance: PRESENT: no acute distress Head exam: PRESENT: atraumatic Eye exam: PRESENT: PERRLA Mouth exam: PRESENT: moist, tongue midline Neck exam: ABSENT: carotid bruit, JVD, lymphadenopathy, thyromegaly Respiratory exam: PRESENT: clear to auscultation thanh. ABSENT: rales, rhonchi, wheezes GI/Abdominal exam: PRESENT: normal bowel sounds, soft, tenderness. ABSENT: distended, guarding, mass, organolmegaly, rebound Rectal exam: PRESENT: deferred Extremities exam: PRESENT: full ROM. ABSENT: calf tenderness, clubbing, pedal edema Neurological exam: PRESENT: alert, awake, oriented to person, oriented to place, oriented to time, oriented to situation, CN II-XII grossly intact. ABSENT: motor sensory deficit Psychiatric exam: PRESENT: appropriate affect, normal mood. ABSENT: homicidal ideation, suicidal ideation Results Laboratory Results: 09/06/18 04:36 09/07/18 04:22 09/07/18 04:22 Sodium 135.1 L Potassium 3.3 L Chloride 106 Carbon Dioxide 24 Anion Gap 5 BUN 6 L Creatinine 0.55 Est GFR ( Amer) > 60 Est GFR (Non-Af Amer) > 60 Glucose 88 Calcium 7.9 L 09/05/18 09/05/18 06:50 06:50 Creatine Kinase 164 H CK-MB (CK-2) 0.97 Troponin I < 0.012 Impressions: Chest X-Ray 09/05/18 07:06 IMPRESSION: Bibasilar atelectasis. Assessment and Plan - Diagnosis (1) Acute alcoholic pancreatitis Qualifiers: Acute pancreatitis complication: unspecified Qualified Code(s): K85.20 - Alcohol induced acute pancreatitis without necrosis or infection Is this a current diagnosis for this admission?: Yes Plan: Improving. Tolerating clear liquid. Stating that has not passed flatus or had a bowel movement. Advance diet as tolerated. Continue volume resuscitation guided by volume status, opioid analgesics, monitor electrolytes and antiemetics. 09/[id number]-old female admitted with acute alcoholic pancreatitis. She is able to tolerate the clear liquids. Still on IV fluids and IV pain medications. On admission lipase is 7000+ plan to repeat the lipase tomorrow. Serum potassium is 3.3 to give potassium supplementation. Drug screen is positive for cocaine. (2) Abdominal pain Qualifiers: Abdominal location: epigastric Qualified Code(s): R10.13 - Epigastric pain Is this a current diagnosis for this admission?: Yes Plan: 09/07/2018-patient is still complaining of abdominal pain. Pain scale is 4-5/10. Patient is receiving IV morphine on as needed basis. Plan is to continue the present management. (3) Cocaine abuse Is this a current diagnosis for this admission?: No Plan: EKG NSR. Troponins <0.012. UDS positive for cocaine. Denies any chest pain. Monitor for withdrawals. (4) ETOH abuse Is this a current diagnosis for this admission?: Yes Plan: Current every day drinker. Drinks about 1-2 beers per day. Monitor for withdrawal. Thiamine and folic acid. Benzos as needed. 09/07/2018-patient is a current everyday drinker. She drinks heavily every day as per the patient. To monitor for the DTs. To give IV Ativan on as needed basis. Is to start on IV banana bag. - Time Time Spent with patient: 25-34 minutes Medications reviewed and adjusted accordingly: Yes Anticipated discharge: Home
[2018-09-07] MEDS ORDERED: ONDANSETRON HCL INJ/PF 4 MG/2 ML SDV IV PRN (13:00)
[2018-09-07] MEDS ORDERED: PROMETHAZINE HCL INJ 25 MG/1 ML VIAL IV PRN ×2 (13:00→15:26)
[2018-09-07] MEDS: POTASSI CL 20 MEQ/50 ML RIDER 20 MEQ/50 ML RTUPB IV SCH ×2 (13:22→15:21)
[2018-09-07] MEDS: ACETAMINOPHEN 325 MG TABLET PO PRN (19:46)
[2018-09-08] MEDS: MORPHINE SULFATE 10 MG/ML INJ IV PRN ×3 (03:14→19:03)
[2018-09-08] MEDS: NORMAL SALINE 1000 ML 1,000 ML IV PRN (04:30)
[2018-09-08 05:21] LABS: ABSOLUTE EOSINOPHILS # (AUTO) 0.3 10^3/uL (0.0-0.6); ABSOLUTE LYMPHOCYTES (AUTO) 1.7 10^3/uL (0.5-4.7); ABSOLUTE MONOCYTES (AUTO) 1.2 10^3/uL (0.1-1.4); ABSOLUTE NEUT (AUTO) 6.3 10^3/uL (1.7-8.2); BASOPHILS % (AUTO) 0.3 % (0-2); EOSINOPHILS % (AUTO) 2.7 % (0-6); HEMATOCRIT 39.3 % (36.0-47.0); HEMOGLOBIN 13.4 g/dL (12.0-15.5); LYMPHOCYTES % (AUTO) 17.6 % (13-45); MEAN CORPUSCULAR HEMOGLOBIN 32.1 pg (27.0-33.4); MEAN CORPUSCULAR VOLUME 94 fl (80-97); MONOCYTES % (AUTO) 12.9 % (3-13); PLATELET COUNT 189 10^3/uL (150-450); RED BLOOD COUNT 4.17 10^6/uL (3.72-5.28); RED CELL DISTRIBUTION WIDTH 12.5 % (11.5-14.0); SEGMENTED NEUTROPHILS % (AUTO) 66.5 % (42-78); TOTAL CELLS COUNTED % (AUTO) 100 %; WHITE BLOOD COUNT 9.4 10^3/uL (4.0-10.5)
[2018-09-08 05:31] LABS: ALANINE AMINOTRANSFERASE 25 U/L (9-52); ALBUMIN 2.8 g/dL (3.5-5.0); ALKALINE PHOSPHATASE 65 U/L (38-126); ANION GAP 6 (5-19); ASPARTATE AMINO TRANSFERASE 29 U/L (14-36); BILIRUBIN,DIRECT 0.5 mg/dL (0.0-0.4); BILIRUBIN,TOTAL 1.1 mg/dL (0.2-1.3); BLOOD UREA NITROGEN 5 mg/dL (7-20); CALCIUM 8.2 mg/dL (8.4-10.2); CARBON DIOXIDE 23 mmol/L (22-30); CHLORIDE 106 mmol/L (98-107); GLUCOSE 87 mg/dL (75-110); POTASSIUM 3.5 mmol/L (3.6-5.0); SODIUM 135.2 mmol/L (137-145); TOTAL PROTEIN 5.8 g/dL (6.3-8.2)
[2018-09-08] MEDS: PANTOPRAZOLE SODIUM 40 MG TABLET.DR PO SCH ×2 (05:31→19:03)
[2018-09-08] MEDS: FOLIC ACID 1 MG TABLET PO SCH (10:55)
[2018-09-08] MEDS: LORAZEPAM INJ 2 MG/1 ML VIAL IV PRN (10:55)
[2018-09-08] MEDS: CYANOCOBALAMIN (VITAMIN B-12) 1,000 MCG TABLET PO SCH (10:55)
[2018-09-08] MEDS: ASCORBIC ACID 500 MG TABLET PO SCH (10:55)
[2018-09-08] MEDS: ENOXAPARIN SODIUM INJ 40 MG/0.4 ML DISP.SYRIN SUBCUT SCH (10:56)
[2018-09-08] MEDS: THIAMINE HCL 100 MG TABLET PO SCH (11:00)
--- NOTE | 2018-09-08 11:43 | PDOC PROGRESS REPORT ---
Subjective Progress Note for:: 09/08/18 Subjective:: 62-year-old female with history of alcohol abuse on inhibiting current daily basis admitted with acute pancreatitis. She is on clear liquids and on IV fluids receiving IV morphine every 4 as needed. No acute events during the last 24 hours. T-max is 99.8. Still complaining of pain . 09/08/[id number]-zwos-old female admitted for acute pancreatitis admitted to drinking heavily and also smokes on a chronic daily basis. She said pain is much better. She eating crackers in her room. She requested to start on a regular diet and we plan to cut down IV fluids to 75 cc/h from today. Lipase was improved to 2900 yesterday from close to 7000 at the time of admission. Plan is also watch for the DTs. Reason For Visit: ACUTE ALCOHOLIC PANCREATITIS,ETOH ABUSE,COCAINE Physical Exam Vital Signs: Temp Pulse Resp BP Pulse Ox 98.5 F 106 H 17 117/75 96 09/08/18 00:00 09/08/18 00:00 09/08/18 00:00 09/08/18 00:00 09/08/18 00:00 Intake & Output 09/07/18 09/08/18 09/09/18 06:59 06:59 06:59 Intake Total 4090 4827 Balance 4090 4827 Weight 71.1 kg 71.2 kg General appearance: PRESENT: no acute distress Head exam: PRESENT: atraumatic Eye exam: PRESENT: PERRLA Mouth exam: PRESENT: moist, tongue midline Teeth exam: PRESENT: poor dentation Neck exam: ABSENT: carotid bruit, JVD, lymphadenopathy, thyromegaly Respiratory exam: PRESENT: clear to auscultation thanh. ABSENT: rales, rhonchi, wheezes Cardiovascular exam: PRESENT: RRR. ABSENT: diastolic murmur, rubs, systolic murmur GI/Abdominal exam: PRESENT: normal bowel sounds, soft. ABSENT: distended, guarding, mass, organolmegaly, rebound, tenderness Rectal exam: PRESENT: deferred Extremities exam: PRESENT: full ROM. ABSENT: calf tenderness, clubbing, pedal edema Neurological exam: PRESENT: alert, awake, oriented to person, oriented to place, oriented to time, oriented to situation, CN II-XII grossly intact. ABSENT: motor sensory deficit Psychiatric exam: PRESENT: appropriate affect, normal mood. ABSENT: homicidal ideation, suicidal ideation Skin exam: PRESENT: dry, intact, warm. ABSENT: cyanosis, rash Results Laboratory Results: 09/08/18 04:25 09/08/18 04:25 09/07/18 09/08/18 09/08/18 04:22 04:25 04:25 WBC 9.4 RBC 4.17 Hgb 13.4 Hct 39.3 MCV 94 MCH 32.1 MCHC 34.0 RDW 12.5 Plt Count 189 Seg Neutrophils % 66.5 Lymphocytes % 17.6 Monocytes % 12.9 Eosinophils % 2.7 Basophils % 0.3 Absolute Neutrophils 6.3 Absolute Lymphocytes 1.7 Absolute Monocytes 1.2 Absolute Eosinophils 0.3 Absolute Basophils 0.0 Sodium 135.2 L Potassium 3.5 L Chloride 106 Carbon Dioxide 23 Anion Gap 6 BUN 5 L Creatinine 0.48 L Est GFR ( Amer) > 60 Est GFR (Non-Af Amer) > 60 Glucose 87 Calcium 8.2 L Magnesium 2.0 Total Bilirubin 1.1 AST 29 ALT 25 Alkaline Phosphatase 65 Total Protein 5.8 L Albumin 2.8 L Lipase 2196.2 H 09/05/18 09/05/18 06:50 06:50 Creatine Kinase 164 H CK-MB (CK-2) 0.97 Troponin I < 0.012 Impressions: Chest X-Ray 09/05/18 07:06 IMPRESSION: Bibasilar atelectasis. Assessment and Plan - Diagnosis (1) Acute alcoholic pancreatitis Qualifiers: Acute pancreatitis complication: unspecified Qualified Code(s): K85.20 - Alcohol induced acute pancreatitis without necrosis or infection Is this a current diagnosis for this admission?: Yes Plan: Improving. Tolerating clear liquid. Stating that has not passed flatus or had a bowel movement. Advance diet as tolerated. Continue volume resuscitation guided by volume status, opioid analgesics, monitor electrolytes and antiemetics. 09/07/[id number]-yliy-old female admitted with acute alcoholic pancreatitis. She is able to tolerate the clear liquids. Still on IV fluids and IV pain medications. On admission lipase is 7000+ plan to repeat the lipase tomorrow. Serum potassi um is 3.3 to give potassium supplementation. Drug screen is positive for cocaine. 09/08/[id number]-iyjm-old female admitted with acute alcoholic pancreatitis latest lipase is around 2190 improved from 6900 and the time of admission. Denies any complaints wants to eat a regular diet and plan is also decrease the IV fluids to 75 cc/h. (2) Abdominal pain Qualifiers: Abdominal location: epigastric Qualified Code(s): R10.13 - Epigastric pain Is this a current diagnosis for this admission?: Yes Plan: 09/07/2018-patient is still complaining of abdominal pain. Pain scale is 4-5/10. Patient is receiving IV morphine on as needed basis. Plan is to continue the present management. 09/08/2018-09/08/2018-as per the patient abdominal pain is resolved. (3) Cocaine abuse Is this a current diagnosis for this admission?: No Plan: EKG NSR. Troponins <0.012. UDS positive for cocaine. Denies any chest pain. Monitor for withdrawals. 09/08/2018-counseling was provided about stop taking polysubstance abuse. (4) ETOH abuse Is this a current diagnosis for this admission?: Yes Plan: Current every day drinker. Drinks about 1-2 beers per day. Monitor for withdrawal. Thiamine and folic acid. Benzos as needed. 09/07/2018-patient is a current everyday drinker. She drinks heavily every day as per the patient. To monitor for the DTs. To give IV Ativan on as needed basis. Is to start on IV banana bag. 09/08/2018-patient admitted to drinking heavy alcohol. On daily basis. Presently on Ativan as needed if watching for the DTs. No acute events during the hospital stay. - Time Time Spent with patient: 25-34 minutes Medications reviewed and adjusted accordingly: Yes Anticipated discharge: Home
[2018-09-08] MEDS ORDERED: NORMAL SALINE 1000 ML 1,000 ML IV PRN (19:54)
[2018-09-09] MEDS: NORMAL SALINE 1000 ML 1,000 ML IV PRN (00:09)
[2018-09-09] MEDS: MORPHINE SULFATE 10 MG/ML INJ IV PRN (00:10)
[2018-09-09] MEDS: LORAZEPAM INJ 2 MG/1 ML VIAL IV PRN ×2 (04:09→09:58)
[2018-09-09] MEDS: PANTOPRAZOLE SODIUM 40 MG TABLET.DR PO SCH ×2 (05:31→17:02)
[2018-09-09 07:22] LABS: ABSOLUTE EOSINOPHILS # (AUTO) 0.3 10^3/uL (0.0-0.6); ABSOLUTE LYMPHOCYTES (AUTO) 1.3 10^3/uL (0.5-4.7); ABSOLUTE MONOCYTES (AUTO) 1.1 10^3/uL (0.1-1.4); ABSOLUTE NEUT (AUTO) 5.2 10^3/uL (1.7-8.2); BASOPHILS % (AUTO) 0.3 % (0-2); EOSINOPHILS % (AUTO) 3.4 % (0-6); HEMATOCRIT 36.9 % (36.0-47.0); HEMOGLOBIN 12.6 g/dL (12.0-15.5); LYMPHOCYTES % (AUTO) 16.8 % (13-45); MEAN CORPUSCULAR HEMOGLOBIN 32.3 pg (27.0-33.4); MEAN CORPUSCULAR HGB CONC 34.3 g/dL (32.0-36.0); MEAN CORPUSCULAR VOLUME 94 fl (80-97); MONOCYTES % (AUTO) 13.8 % (3-13); PLATELET COUNT 231 10^3/uL (150-450); RED BLOOD COUNT 3.91 10^6/uL (3.72-5.28); RED CELL DISTRIBUTION WIDTH 12.8 % (11.5-14.0); SEGMENTED NEUTROPHILS % (AUTO) 65.7 % (42-78); TOTAL CELLS COUNTED % (AUTO) 100 %; WHITE BLOOD COUNT 7.9 10^3/uL (4.0-10.5)
[2018-09-09 07:49] LABS: ALANINE AMINOTRANSFERASE 26 U/L (9-52); ALBUMIN 2.8 g/dL (3.5-5.0); ALKALINE PHOSPHATASE 74 U/L (38-126); ANION GAP 9 (5-19); ASPARTATE AMINO TRANSFERASE 26 U/L (14-36); BILIRUBIN,DIRECT 0.4 mg/dL (0.0-0.4); BILIRUBIN,TOTAL 0.5 mg/dL (0.2-1.3); BLOOD UREA NITROGEN 5 mg/dL (7-20); CALCIUM 8.2 mg/dL (8.4-10.2); CARBON DIOXIDE 23 mmol/L (22-30); CHLORIDE 105 mmol/L (98-107); GLUCOSE 144 mg/dL (75-110); POTASSIUM 3.3 mmol/L (3.6-5.0); TOTAL PROTEIN 5.8 g/dL (6.3-8.2)
[2018-09-09 09:08] LABS: LIPASE 6415.5 U/L (23-300)
[2018-09-09] MEDS: ASCORBIC ACID 500 MG TABLET PO SCH (09:58)
[2018-09-09] MEDS: CYANOCOBALAMIN (VITAMIN B-12) 1,000 MCG TABLET PO SCH (09:58)
[2018-09-09] MEDS: THIAMINE HCL 100 MG TABLET PO SCH (09:58)
[2018-09-09] MEDS: FOLIC ACID 1 MG TABLET PO SCH (09:58)
[2018-09-09] MEDS: ENOXAPARIN SODIUM INJ 40 MG/0.4 ML DISP.SYRIN SUBCUT SCH (09:59)
[2018-09-09] MEDS ORDERED: POTASSIUM CHLORIDE 10 MEQ CAPSULE.ER PO ONE (10:16)
[2018-09-09] MEDS ORDERED: LORAZEPAM INJ 2 MG/1 ML VIAL ONE ×2 (10:48→12:27)
[2018-09-09] MEDS ORDERED: LORAZEPAM INJ 2 MG/1 ML VIAL IV PRN ×2 (11:13→12:54)
--- NOTE | 2018-09-09 11:18 | PDOC PROGRESS REPORT ---
Subjective Progress Note for:: 09/09/18 Subjective:: 62-year-old female with history of alcohol abuse on inhibiting current daily basis admitted with acute pancreatitis. She is on clear liquids and on IV fluids receiving IV morphine every 4 as needed. No acute events during the last 24 hours. T-max is 99.8. Still complaining of pain . 09/08/[id number]-puok-old female admitted for acute pancreatitis admitted to drinking heavily and also smokes on a chronic daily basis. She said pain is much better. She eating crackers in her room. She requested to start on a regular diet and we plan to cut down IV fluids to 75 cc/h from today. Lipase was improved to 2900 yesterday from close to 7000 at the time of admission. Plan is also watch for the DTs. 09/09/[id number]-ccnv-old female admitted for alcohol induced pancreatitis. She is started on regular diet yesterday we continued IV fluids but lipase level went back up to more than 6000. Today she looks anxious agitated and nervous. Looks like she is going to have the symptoms of alcohol withdrawal. I requested the nurse to give 2 mg IV Ativan now and to change the Ativan to 2 mg IV every 2 hours on scheduled basis under Thorazine 25 mg IV every 8 hours. To watch for the DTs. Reason For Visit: ACUTE ALCOHOLIC PANCREATITIS,ETOH ABUSE,COCAINE Physical Exam Vital Signs: Temp Pulse Resp BP Pulse Ox 99.2 F 103 H 16 132/84 H 96 09/09/18 08:00 09/09/18 08:00 09/09/18 08:00 09/09/18 08:00 09/09/18 08:00 Intake & Output 09/08/18 09/09/18 09/10/18 06:59 06:59 06:59 Intake Total 4827 1318 Balance 4827 1318 Weight 71.2 kg 70.6 kg General appearance: PRESENT: mild distress Head exam: PRESENT: atraumatic Eye exam: PRESENT: PERRLA Mouth exam: PRESENT: moist, tongue midline Teeth exam: PRESENT: poor dentation Neck exam: ABSENT: carotid bruit, JVD, lymphadenopathy, thyromegaly Respiratory exam: PRESENT: decreased breath sounds Cardiovascular exam: PRESENT: tachycardia GI/Abdominal exam: PRESENT: normal bowel sounds, soft. ABSENT: distended, guarding, mass, organolmegaly, rebound, tenderness Rectal exam: PRESENT: deferred Extremities exam: PRESENT: full ROM. ABSENT: calf tenderness, clubbing, pedal edema Neurological exam: PRESENT: alert, awake, oriented to person, oriented to place, oriented to time, oriented to situation, CN II-XII grossly intact. ABSENT: motor sensory deficit Psychiatric exam: PRESENT: agitated, anxious Results Laboratory Results: 09/09/18 06:17 09/09/18 06:17 09/09/18 09/09/18 06:17 06:17 WBC 7.9 RBC 3.91 Hgb 12.6 Hct 36.9 MCV 94 MCH 32.3 MCHC 34.3 RDW 12.8 Plt Count 231 Seg Neutrophils % 65.7 Lymphocytes % 16.8 Monocytes % 13.8 H Eosinophils % 3.4 Basophils % 0.3 Absolute Neutrophils 5.2 Absolute Lymphocytes 1.3 Absolute Monocytes 1.1 Absolute Eosinophils 0.3 Absolute Basophils 0.0 Sodium 137.0 Potassium 3.3 L Chloride 105 Carbon Dioxide 23 Anion Gap 9 BUN 5 L Creatinine 0.48 L Est GFR ( Amer) > 60 Est GFR (Non-Af Amer) > 60 Glucose 144 H Calcium 8.2 L Magnesium 2.1 Total Bilirubin 0.5 AST 26 ALT 26 Alkaline Phosphatase 74 Total Protein 5.8 L Albumin 2.8 L Lipase 6415.5 H 09/05/18 09/05/18 06:50 06:50 Creatine Kinase 164 H CK-MB (CK-2) 0.97 Troponin I < 0.012 Impressions: Chest X-Ray 09/05/18 07:06 IMPRESSION: Bibasilar atelectasis. Assessment and Plan - Diagnosis (1) Acute alcoholic pancreatitis Qualifiers: Acute pancreatitis complication: unspecified Qualified Code(s): K85.20 - Alcohol induced acute pancreatitis without necrosis or infection Is this a current diagnosis for this admission?: Yes Plan: Improving. Tolerating clear liquid. Stating that has not passed flatus or had a bowel movement. Advance diet as tolerated. Continue volume resuscitation guided by volume stat us, opioid analgesics, monitor electrolytes and antiemetics. 09/07/[id number]-kydy-old female admitted with acute alcoholic pancreatitis. She is able to tolerate the clear liquids. Still on IV fluids and IV pain medications. On admission lipase is 7000+ plan to repeat the lipase tomorrow. Serum pot assium is 3.3 to give potassium supplementation. Drug screen is positive for cocaine. 09/08/[id number]-nafg-old female admitted with acute alcoholic pancreatitis latest lipase is around 2190 improved from 6900 and the time of admission. Denies any complaints wants to eat a regular diet and plan is also decrease the IV fluids to 75 cc/h. 09/09/[id number]-cpbl-old female admitted with acute alcoholic pancreatitis lipase this morning is more than 6000. Plan is to continue the IV fluids and continue to closely monitor the lipase levels. (2) Abdominal pain Qualifiers: Abdominal location: epigastric Qualified Code(s): R10.13 - Epigastric pain Is this a current diagnosis for this admission?: Yes Plan: 09/07/2018-patient is still complaining of abdominal pain. Pain scale is 4-5/10. Patient is receiving IV morphine on as needed basis. Plan is to continue the present management. 09/08/2018-as per the patient abdominal pain is resolved. 09/09/2018-abdominal pain was resolved. (3) Cocaine abuse Is this a current diagnosis for this admission?: No (4) ETOH abuse Is this a current diagnosis for this admission?: Yes Plan: Current every day drinker. Drinks about 1-2 beers per day. Monitor for withdrawal. Thiamine and folic acid. Benzos as needed. 09/07/2018-patient is a current everyday drinker. She drinks heavily every day as per the patient. To monitor for the DTs. To give IV Ativan on as needed basis. Is to start on IV banana bag. 09/08/2018-patient admitted to drinking heavy alcohol. On daily basis. Presently on Ativan as needed if watching for the DTs. No acute events during the hospital stay. 09/09/[id number]-dehb-old female admitted to drinking heavy alcohol on daily basis. Looks like she is started to have alcohol withdrawal symptoms. Started on Ativan 2 mg IV every 2 hours on Thorazine 25 mg IV every 6 hours. Plan is to continue to closely monitor her. Patient is expressing desire to go home and I convinced her to stay at least for another day. - Time Time Spent with patient: 25-34 minutes Smoking Cessation Education: over 10 minutes Medications reviewed and adjusted accordingly: Yes Anticipated discharge: Home
[2018-09-09] MEDS ORDERED: LORAZEPAM INJ 2 MG/1 ML VIAL (TAPER DOSING) IV SCH (13:00)
[2018-09-09] MEDS: CHLORPROMAZINE HCL INJ 25 MG/1 ML AMPULE IV SCH ×2 (13:00→21:05)
[2018-09-09] MEDS ORDERED: HALOPERIDOL LACTATE INJ 5 MG/1 ML VIAL ONE (13:34)
--- NOTE | 2018-09-09 16:20 | PSYCHOLOGICAL NOTE ---
Psych Note - Psych Note Date seen by psych provider: 09/08/18 Psych Note: Chart review only at this point. Presenting Problem: Agitation and Anxiety. Presented to ED on 09/05/18 for abdominal pain that began that evening. Medical documentation noted observed distress as evidenced by restlessness. Patient admitted to medical staff drinking 1-2 beers daily since she was young and using Cocaine. UDS was positive for Cocaine. She was a same day admit for acute alcoholic pancreatitis, alcohol abuse and cocaine abuse. Progress note from today noted concerns for start of alcohol withdrawal. Medications being utilized include Thorazine 25MG IV q*H and Ativan as CIWA. Also NaCl, K, and Thiamine for electrolyte replenishment. Diagnosis: Polysubstance Use Alcohol Use Disorder, Severe Cocaine Use Disorder, Severe Medication recommendations made by the psychiatric medication provider, Dr. Radha MD., includes: Can be started and then provided as scripts at discharge Add Effexor 37.5MG daily for depression/energy/focus/curb cravings Add Buspar 5MG twice a day for anxiety/calming effect/depression/sleep Impression/Plan: Patient is cleared from acute psychiatric services. If patient interested in Alcohol Detox (and does not go through it here) can provide linkage to [facility]. Should be linked to [facility] (can walk in M-F 8:00AM-4:30PM) at the very least for outpatient dual diagnosis substance abuse and mental health treatment. Consulted with Dr. Campbell regarding the management and care of patient. Attending Hospitalist made aware of recommendations.
[2018-09-09] MEDS: BANANA BAG (EDIT INGREDIENTS/RATE) IV SCH ×5 (17:54)
[2018-09-09] MEDS: LORAZEPAM INJ 2 MG/1 ML VIAL (TAPER DOSING) IV SCH (17:55)
[2018-09-10] MEDS: LORAZEPAM INJ 2 MG/1 ML VIAL (TAPER DOSING) IV SCH ×3 (00:01→15:40)
[2018-09-10] MEDS: HALOPERIDOL LACTATE INJ 5 MG/1 ML VIAL IV PRN ×2 (01:39→18:01)
[2018-09-10] MEDS: CHLORPROMAZINE HCL INJ 25 MG/1 ML AMPULE IV SCH ×3 (05:17→21:08)
[2018-09-10] MEDS: PANTOPRAZOLE SODIUM 40 MG TABLET.DR PO SCH ×3 (05:18→18:13)
[2018-09-10] MEDS: NORMAL SALINE 1000 ML 1,000 ML IV PRN (06:52)
--- NOTE | 2018-09-10 10:23 | PDOC PROGRESS REPORT ---
Subjective Progress Note for:: 09/10/18 Subjective:: 62-year-old female with history of alcohol abuse on inhibiting current daily basis admitted with acute pancreatitis. She is on clear liquids and on IV fluids receiving IV morphine every 4 as needed. No acute events during the last 24 hours. T-max is 99.8. Still complaining of pain -07/24. 09/08/[id number]-lmnt-old female admitted for acute pancreatitis admitted to drinking heavily and also smokes on a chronic daily basis. She said pain is much better. She eating crackers in her room. She requested to start on a regular diet and we plan to cut down IV fluids to 75 cc/h from today. Lipase was improved to 2900 yesterday from close to 7000 at the time of admission. Plan is also watch for the DTs. 09/09/[id number]-kfrg-old female admitted for alcohol induced pancreatitis. She is started on regular diet yesterday we continued IV fluids but lipase level went back up to more than 6000. Today she looks anxious agitated and nervous. Looks like she is going to have the symptoms of alcohol withdrawal. I requested the nurse to give 2 mg IV Ativan now and to change the Ativan to 2 mg IV every 2 hours on scheduled basis under Thorazine 25 mg IV every 8 hours. To watch for the DTs. 09/10/[id number]-cher-old female admitted for alcohol induced pancreatitis since yesterday she went into DTs she received several doses of IV Ativan, Haldol and Thorazine she is was placed on soft restraints. She is more calm more comfortable in the bed today. No acute events in the last 24 hours. Reason For Visit: ACUTE ALCOHOLIC PANCREATITIS,ETOH ABUSE,COCAINE Physical Exam Vital Signs: Temp Pulse Resp BP Pulse Ox 98.0 F 98 18 134/85 H 95 09/10/18 09:00 09/10/18 09:00 09/10/18 09:00 09/10/18 09:00 09/10/18 09:00 Intake & Output 09/09/18 09/10/18 09/11/18 06:59 06:59 06:59 Intake Total 1318 1218 Balance 1318 1218 Weight 70.6 kg 71.1 kg General appearance: PRESENT: no acute distress Head exam: PRESENT: atraumatic Eye exam: PRESENT: PERRLA Mouth exam: PRESENT: moist, tongue midline Teeth exam: PRESENT: poor dentation Neck exam: ABSENT: carotid bruit, JVD, lymphadenopathy, thyromegaly Respiratory exam: PRESENT: clear to auscultation thanh. ABSENT: rales, rhonchi, wheezes Cardiovascular exam: PRESENT: tachycardia GI/Abdominal exam: PRESENT: normal bowel sounds, soft. ABSENT: distended, guarding, mass, organolmegaly, rebound, tenderness Rectal exam: PRESENT: deferred Neurological exam: PRESENT: alert, awake Psychiatric exam: PRESENT: anxious Results Laboratory Results: 09/09/18 06:17 09/09/18 06:17 09/05/18 09/05/18 06:50 06:50 Creatine Kinase 164 H CK-MB (CK-2) 0.97 Troponin I < 0.012 Impressions: Chest X-Ray 09/05/18 07:06 IMPRESSION: Bibasilar atelectasis. Assessment and Plan - Diagnosis (1) Acute alcoholic pancreatitis Qualifiers: Acute pancreatitis complication: unspecified Qualified Code(s): K85.20 - Alcohol induced acute pancreatitis without necrosis or infection Is this a current diagnosis for this admission?: Yes Plan: Improving. Tolerating clear liquid. Stating that has not passed flatus or had a bowel movement. Advance diet as tolerated. Continue volume resuscitation guided by volume status, opioid analgesics, monitor electrolytes and antiemetics. 09/07/[id number]-zris-old female admitted with acute alcoholic pancreatitis. She is able to tolerate the clear liquids. Still on IV fluids and IV pain medications. On admission lipase is 7000+ plan to repeat the lipase tomorrow. Serum potassium is 3.3 to give potassium supplementation. Drug screen is positive for cocaine. 09/08/[id number]-lznk-old female admitted with acute alcoholic pancreatitis latest lipase is around 2190 improved from 6900 and the time of admission. Denies any complaints wants to eat a regular diet and plan is also decrease the IV fluids to 75 cc/h. 09/09/[id number]-srcx-old female admitted with acute alcoholic pancreatitis lipase this morning is more than 6000. Plan is to continue the IV fluids and continue to closely monitor the lipase levels. 09/10/2018-patient admitted with elevated lipase levels repeat lipase yesterday 6100 today's labs are pending. To check the lipase levels on daily basis. (2) Abdominal pain Qualifiers: Abdominal location: epigastric Qualified Code(s): R10.13 - Epigastric pain Is this a current diagnosis for this admission?: Yes Plan: 09/07/2018-patient is still complaining of abdominal pain. Pain scale is 4-5/10. Patient is receiving IV morphine on as needed basis. Plan is to continue the present management. 09/08/2018-as per the patient abdominal pain is resolved. 09/09/2018-abdominal pain was resolved. 09/10/2018-patient came with complaints of abdominal pain most likely secondary to Acute on chronic pancreatitis. Abdominal pain is resolved. (3) Cocaine abuse Is this a current diagnosis for this admission?: No (4) ETOH abuse Is this a current diagnosis for this admission?: Yes Plan: Current every day drinker. Drinks about 1-2 beers per day. Monitor for withdrawal. Thiamine and folic acid. Benzos as needed. 09/07/2018-patient is a current everyday drinker. She drinks heavily every day as per the patient. To monitor for the DTs. To give IV Ativan on as needed basis. Is to start on IV banana bag. 09/08/2018-patient admitted to drinking heavy alcohol. On daily basis. Presently on Ativan as needed if watching for the DTs. No acute events during the hospital stay. 09/09/[id number]-adhh-old female admitted to drinking heavy alcohol on daily basis. Looks like she is started to have alcohol withdrawal symptoms. Started on Ativan 2 mg IV every 2 hours on Thorazine 25 mg IV every 6 hours. Plan is to continue to closely monitor her. Patient is expressing desire to go home and I convinced her to stay at least for another day. 09/10/2018-patient is going through DTs from yesterday sitter was present. Patient is on soft restraints. She is on Haldol as needed IV Ativan as needed and Thorazine IV every 8 hours. Start on banana bag daily. - Time Time Spent with patient: 25-34 minutes Smoking Cessation Education: over 10 minutes Medications reviewed and adjusted accordingly: Yes Anticipated discharge: Home
[2018-09-10 10:43] LABS: ABSOLUTE BASOPHILS # (AUTO) 0.1 10^3/uL (0.0-0.2); ABSOLUTE EOSINOPHILS # (AUTO) 0.2 10^3/uL (0.0-0.6); ABSOLUTE LYMPHOCYTES (AUTO) 1.7 10^3/uL (0.5-4.7); ABSOLUTE MONOCYTES (AUTO) 0.8 10^3/uL (0.1-1.4); ABSOLUTE NEUT (AUTO) 3.7 10^3/uL (1.7-8.2); BASOPHILS % (AUTO) 0.9 % (0-2); EOSINOPHILS % (AUTO) 2.7 % (0-6); HEMATOCRIT 37.5 % (36.0-47.0); HEMOGLOBIN 12.9 g/dL (12.0-15.5); LYMPHOCYTES % (AUTO) 26.2 % (13-45); MEAN CORPUSCULAR HEMOGLOBIN 32.1 pg (27.0-33.4); MEAN CORPUSCULAR HGB CONC 34.3 g/dL (32.0-36.0); MEAN CORPUSCULAR VOLUME 94 fl (80-97); MONOCYTES % (AUTO) 12.2 % (3-13); PLATELET COUNT 269 10^3/uL (150-450); RED BLOOD COUNT 4.01 10^6/uL (3.72-5.28); RED CELL DISTRIBUTION WIDTH 12.2 % (11.5-14.0); TOTAL CELLS COUNTED % (AUTO) 100 %; WHITE BLOOD COUNT 6.4 10^3/uL (4.0-10.5)
[2018-09-10] MEDS: ASCORBIC ACID 500 MG TABLET PO SCH (11:39)
[2018-09-10] MEDS: ENOXAPARIN SODIUM INJ 40 MG/0.4 ML DISP.SYRIN SUBCUT SCH (11:40)
[2018-09-10 11:42] LABS: ALANINE AMINOTRANSFERASE 36 U/L (9-52); ALBUMIN 3.3 g/dL (3.5-5.0); ALKALINE PHOSPHATASE 72 U/L (38-126); ANION GAP 9 (5-19); ASPARTATE AMINO TRANSFERASE 38 U/L (14-36); BILIRUBIN,DIRECT 0.4 mg/dL (0.0-0.4); BILIRUBIN,TOTAL 0.7 mg/dL (0.2-1.3); BLOOD UREA NITROGEN 5 mg/dL (7-20); CALCIUM 9.2 mg/dL (8.4-10.2); CARBON DIOXIDE 23 mmol/L (22-30); CHLORIDE 109 mmol/L (98-107); GLUCOSE 90 mg/dL (75-110); LIPASE 241.5 U/L (23-300); POTASSIUM 3.5 mmol/L (3.6-5.0); TOTAL PROTEIN 6.6 g/dL (6.3-8.2)
[2018-09-10] MEDS: CYANOCOBALAMIN (VITAMIN B-12) 1,000 MCG TABLET PO SCH (11:45)
[2018-09-10] MEDS: FOLIC ACID 1 MG TABLET PO SCH (11:45)
[2018-09-10] MEDS: LORAZEPAM INJ 2 MG/1 ML VIAL IV SCH ×2 (15:40→23:50)
[2018-09-10] MEDS ORDERED: NORMAL SALINE 1000 ML 1,000 ML with POTASSIUM CHLORIDE 20 MEQ, MAGNESIUM SULFATE 8 MEQ,... IV SCH ×5 (18:00)
[2018-09-10] MEDS: BANANA BAG (EDIT INGREDIENTS/RATE) IV SCH ×5 (18:01)
[2018-09-11] MEDS: PANTOPRAZOLE SODIUM 40 MG TABLET.DR PO SCH ×2 (05:02→18:01)
[2018-09-11] MEDS: CHLORPROMAZINE HCL INJ 25 MG/1 ML AMPULE IV SCH ×3 (05:36→21:01)
[2018-09-11] MEDS: NORMAL SALINE 1000 ML 1,000 ML IV PRN (08:32)
[2018-09-11] MEDS: LORAZEPAM INJ 2 MG/1 ML VIAL IV SCH ×3 (08:32→19:43)
--- NOTE | 2018-09-11 09:43 | PDOC PROGRESS REPORT ---
Subjective Progress Note for:: 09/11/18 Subjective:: 62-year-old female with history of alcohol abuse on inhibiting current daily basis admitted with acute pancreatitis. She is on clear liquids and on IV fluids receiving IV morphine every 4 as needed. No acute events during the last 24 hours. T-max is 99.8. Still complaining of pain . 09/08/[id number]-zawg-old female admitted for acute pancreatitis admitted to drinking heavily and also smokes on a chronic daily basis. She said pain is much better. She eating crackers in her room. She requested to start on a regular diet and we plan to cut down IV fluids to 75 cc/h from today. Lipase was improved to 2900 yesterday from close to 7000 at the time of admission. Plan is also watch for the DTs. 09/09/[id number]-edpu-old female admitted for alcohol induced pancreatitis. She is started on regular diet yesterday we continued IV fluids but lipase level went back up to more than 6000. Today she looks anxious agitated and nervous. Looks like she is going to have the symptoms of alcohol withdrawal. I requested the nurse to give 2 mg IV Ativan now and to change the Ativan to 2 mg IV every 2 hours on scheduled basis under Thorazine 25 mg IV every 8 hours. To watch for the DTs. 09/10/[id number]-txez-old female admitted for alcohol induced pancreatitis since yesterday she went into DTs she received several doses of IV Ativan, Haldol and Thorazine she is was placed on soft restraints. She is more calm more comfortable in the bed today. No acute events in the last 24 hours. 09/11/[id number]-ynst-old female admitted with alcohol induced pancreatitis she is going through alcohol withdrawal for the last 48 hours DTs protocol was implemented. Patient is in soft restraints. No acute events in the last 24 hours. Afebrile. Reason For Visit: ACUTE ALCOHOLIC PANCREATITIS,ETOH ABUSE,COCAINE Physical Exam Vital Signs: Temp Pulse Resp BP Pulse Ox 98.2 F 78 16 132/90 H 98 09/11/18 09:00 09/11/18 09:00 09/11/18 09:00 09/11/18 09:00 09/11/18 09:00 Intake & Output 09/10/18 09/11/18 09/12/18 06:59 06:59 06:59 Intake Total 1218 2531 1023 Balance 1218 2531 1023 Weight 71.1 kg 72.2 kg General appearance: PRESENT: no acute distress Head exam: PRESENT: atraumatic Eye exam: PRESENT: PERRLA Mouth exam: PRESENT: dry mucosa Teeth exam: PRESENT: poor dentation Neck exam: ABSENT: carotid bruit, JVD, lymphadenopathy, thyromegaly Respiratory exam: PRESENT: decreased breath sounds Cardiovascular exam: PRESENT: RRR, tachycardia. ABSENT: diastolic murmur, rubs, systolic murmur GI/Abdominal exam: PRESENT: normal bowel sounds, soft. ABSENT: distended, guarding, mass, organolmegaly, rebound, tenderness Rectal exam: PRESENT: deferred Neurological exam: PRESENT: alert, awake, oriented to person, oriented to place, oriented to time, oriented to situation, CN II-XII grossly intact. ABSENT: motor sensory deficit Psychiatric exam: PRESENT: appropriate affect, normal mood. ABSENT: homicidal ideation, suicidal ideation Results Laboratory Results: 09/10/18 09:55 09/10/18 11:16 09/10/18 09/10/18 09/10/18 09:55 09:55 11:16 WBC 6.4 RBC 4.01 Hgb 12.9 Hct 37.5 MCV 94 MCH 32.1 MCHC 34.3 RDW 12.2 Plt Count 269 Seg Neutrophils % 58.0 Lymphocytes % 26.2 Monocytes % 12.2 Eosinophils % 2.7 Basophils % 0.9 Absolute Neutrophils 3.7 Absolute Lymphocytes 1.7 Absolute Monocytes 0.8 Absolute Eosinophils 0.2 Absolute Basophils 0.1 Sodium Cancelled 141.0 Potassium Cancelled 3.5 L Chloride Cancelled 109 H Carbon Dioxide Cancelled 23 Anion Gap Cancelled 9 BUN Cancelled 5 L Creatinine Cancelled 0.47 L Est GFR ( Amer) Cancelled > 60 Est GFR (Non-Af Amer) Cancelled > 60 Glucose Cancelled 90 Calcium Cancelled 9.2 Magnesium Cancelled 2.3 Total Bilirubin Cancelled 0.7 AST Cancelled 38 H ALT Cancelled 36 Alkaline Phosphatase Cancelled 72 Total Protein Cancelled 6.6 Albumin Cancelled 3.3 L Lipase Cancelled 241.5 09/11/18 08:41 WBC RBC Hgb Hct MCV MCH MCHC RDW Plt Count Seg Neutrophils % Lymphocytes % Monocytes % Eosinophils % Basophils % Absolute Neutrophils Absolute Lymphocytes Absolute Monocytes Absolute Eosinophils Absolute Basophils Sodium Potassium Chloride Carbon Dioxide Anion Gap BUN Creatinine Est GFR ( Amer) Est GFR (Non-Af Amer) Glucose Calcium Magnesium Total Bilirubin AST ALT Alkaline Phosphatase Total Protein Albumin Lipase 101.4 09/05/18 09/05/18 06:50 06:50 Creatine Kinase 164 H CK-MB (CK-2) 0.97 Troponin I < 0.012 Impressions: Chest X-Ray 09/05/18 07:06 IMPRESSION: Bibasilar atelectasis. Assessment and Plan - Diagnosis (1) Acute alcoholic pancreatitis Qualifiers: Acute pancreatitis complication: unspecified Qualified Code(s): K85.20 - Alcohol induced acute pancreatitis without necrosis or infection Is this a current diagnosis for this admission?: Yes Plan: Improving. Tolerating clear liquid. Stating that has not passed flatus or had a bowel movement. Advance diet as tolerated. Continue volume resuscitation guided by volume status, opioid analgesics, monitor electrolytes and antiemetics. 09/07/[id number]-nlqn-old female admitted with acute alcoholic pancreatitis. She is able to tolerate the clear liquids. Still on IV fluids and IV pain medications. On admission lipase is 7000+ plan to repeat the lipase tomorrow. Serum potassium is 3.3 to give potassium supplementation. Drug screen is positive for cocaine. 09/08/[id number]-thln-old female admitted with acute alcoholic pancreatitis latest lipase is around 2190 improved from 6900 and the time of admission. Denies any complaints wants to eat a regular diet and plan is also decrease the IV fluids to 75 cc/h. 09/09/20181250-24-uzjz-old female admitted with acute alcoholic pancreatitis lipase this morning is more than 6000. Plan is to continue the IV fluids and continue to closely monitor the lipase levels. 09/10/2018-patient admitted with elevated lipase levels repeat lipase yesterday 6100 today's labs are pending. To check the lipase levels on daily basis. 09/11/20189973-45-hrkg-old female admitted with alcohol induced pancreatitis latest lipase level is around 241. Today's labs are pending. T-max of 99.3. Still tachycardic. no Complains of abdominal pains anymore. (2) Abdominal pain Qualifiers: Abdominal location: epigastric Qualified Code(s): R10.13 - Epigastric pain Is this a current diagnosis for this admission?: Yes Plan: 09/07/2018-patient is still complaining of abdominal pain. Pain scale is 4-5/10. Patient is receiving IV morphine on as needed basis. Plan is to continue the present management. 09/08/2018-as per the patient abdominal pain is resolved. 09/09/2018-abdominal pain was resolved. 09/10/2018-patient came with complaints of abdominal pain most likely secondary to Acute on chronic pancreatitis. Abdominal pain is resolved. 09/11/2018-abdominal pain was resolved most likely secondary to acute on chronic pancreatitis. (3) Cocaine abuse Is this a current diagnosis for this admission?: No (4) ETOH abuse Is this a current diagnosis for this admission?: Yes Plan: Current every day drinker. Drinks about 1-2 beers per day. Monitor for withdrawal. Thiamine and folic acid. Benzos as needed. 09/07/2018-patient is a current everyday drinker. She drinks heavily every day as per the patient. To monitor for the DTs. To give IV Ativan on as needed basis. Is to start on IV banana bag. 09/08/2018-patient admitted to drinking heavy alcohol. On daily basis. Presently on Ativan as needed if watching for the DTs. No acute events during the hospital stay. 09/09/[id number]-athk-old female admitted to drinking heavy alcohol on daily basis. Looks like she is started to have alcohol withdrawal symptoms. Started on Ativan 2 mg IV every 2 hours on Thorazine 25 mg IV every 6 hours. Plan is to continue to closely monitor her. Patient is expressing desire to go home and I convinced her to stay at least for another day. 09/10/2018-patient is going through DTs from yesterday sitter was present. Patient is on soft restraints. She is on Haldol as needed IV Ativan as needed and Thorazine IV every 8 hours. Start on banana bag daily. 09/11/2018-patient is still going through alcohol withdrawal symptoms patient is receiving Ativan as per protocol. She is on soft restraints. - Time Time Spent with patient: 15-24 minutes Medications reviewed and adjusted accordingly: Yes Anticipated discharge: Home
[2018-09-11] MEDS: ASCORBIC ACID 500 MG TABLET PO SCH (10:59)
[2018-09-11] MEDS: MORPHINE SULFATE 10 MG/ML INJ IV PRN ×2 (11:00→18:02)
[2018-09-11] MEDS: ENOXAPARIN SODIUM INJ 40 MG/0.4 ML DISP.SYRIN SUBCUT SCH (11:03)
[2018-09-11] MEDS: HALOPERIDOL LACTATE INJ 5 MG/1 ML VIAL IV PRN ×2 (11:05→18:02)
[2018-09-11] MEDS: BANANA BAG (EDIT INGREDIENTS/RATE) IV SCH ×5 (18:10)
[2018-09-12] MEDS: LORAZEPAM INJ 2 MG/1 ML VIAL IV SCH ×3 (01:25→17:54)
[2018-09-12 04:55] LABS: ABSOLUTE BASOPHILS # (AUTO) 0.1 10^3/uL (0.0-0.2); ABSOLUTE EOSINOPHILS # (AUTO) 0.3 10^3/uL (0.0-0.6); ABSOLUTE LYMPHOCYTES (AUTO) 2.2 10^3/uL (0.5-4.7); ABSOLUTE MONOCYTES (AUTO) 0.8 10^3/uL (0.1-1.4); ABSOLUTE NEUT (AUTO) 2.2 10^3/uL (1.7-8.2); BASOPHILS % (AUTO) 1.7 % (0-2); EOSINOPHILS % (AUTO) 4.8 % (0-6); HEMATOCRIT 36.8 % (36.0-47.0); HEMOGLOBIN 12.4 g/dL (12.0-15.5); LYMPHOCYTES % (AUTO) 39.5 % (13-45); MEAN CORPUSCULAR HEMOGLOBIN 31.6 pg (27.0-33.4); MEAN CORPUSCULAR HGB CONC 33.8 g/dL (32.0-36.0); MEAN CORPUSCULAR VOLUME 94 fl (80-97); MONOCYTES % (AUTO) 14.1 % (3-13); PLATELET COUNT 308 10^3/uL (150-450); RED BLOOD COUNT 3.93 10^6/uL (3.72-5.28); RED CELL DISTRIBUTION WIDTH 12.7 % (11.5-14.0); SEGMENTED NEUTROPHILS % (AUTO) 39.9 % (42-78); TOTAL CELLS COUNTED % (AUTO) 100 %; WHITE BLOOD COUNT 5.6 10^3/uL (4.0-10.5)
[2018-09-12] MEDS: CHLORPROMAZINE HCL INJ 25 MG/1 ML AMPULE IV SCH ×3 (05:01→21:00)
[2018-09-12] MEDS: PANTOPRAZOLE SODIUM 40 MG TABLET.DR PO SCH ×3 (05:03→17:55)
[2018-09-12 05:06] LABS: ALANINE AMINOTRANSFERASE 29 U/L (9-52); ALBUMIN 3.1 g/dL (3.5-5.0); ALKALINE PHOSPHATASE 89 U/L (38-126); ANION GAP 8 (5-19); ASPARTATE AMINO TRANSFERASE 36 U/L (14-36); BILIRUBIN,DIRECT 0.3 mg/dL (0.0-0.4); BILIRUBIN,TOTAL 0.3 mg/dL (0.2-1.3); BLOOD UREA NITROGEN 7 mg/dL (7-20); CALCIUM 8.8 mg/dL (8.4-10.2); CARBON DIOXIDE 26 mmol/L (22-30); CHLORIDE 110 mmol/L (98-107); GLUCOSE 100 mg/dL (75-110); POTASSIUM 3.8 mmol/L (3.6-5.0); SODIUM 143.5 mmol/L (137-145); TOTAL PROTEIN 6.5 g/dL (6.3-8.2)
[2018-09-12] MEDS: ACETAMINOPHEN 325 MG TABLET PO PRN ×2 (10:05→21:05)
[2018-09-12] MEDS: BUSPIRONE HCL 10 MG TABLET PO SCH ×2 (10:06→21:04)
[2018-09-12] MEDS: ENOXAPARIN SODIUM INJ 40 MG/0.4 ML DISP.SYRIN SUBCUT SCH (10:07)
[2018-09-12] MEDS: ASCORBIC ACID 500 MG TABLET PO SCH (10:07)
--- NOTE | 2018-09-12 10:29 | PDOC PROGRESS REPORT ---
Subjective Progress Note for:: 09/12/18 Subjective:: 62-year-old female with history of alcohol abuse on inhibiting current daily basis admitted with acute pancreatitis. She is on clear liquids and on IV fluids receiving IV morphine every 4 as needed. No acute events during the last 24 hours. T-max is 99.8. Still complaining of pain . 09/08/[id number]-wkdy-old female admitted for acute pancreatitis admitted to drinking heavily and also smokes on a chronic daily basis. She said pain is much better. She eating crackers in her room. She requested to start on a regular diet and we plan to cut down IV fluids to 75 cc/h from today. Lipase was improved to 2900 yesterday from close to 7000 at the time of admission. Plan is also watch for the DTs. 09/09/[id number]-xjpk-old female admitted for alcohol induced pancreatitis. She is started on regular diet yesterday we continued IV fluids but lipase level went back up to more than 6000. Today she looks anxious agitated and nervous. Looks like she is going to have the symptoms of alcohol withdrawal. I requested the nurse to give 2 mg IV Ativan now and to change the Ativan to 2 mg IV every 2 hours on scheduled basis under Thorazine 25 mg IV every 8 hours. To watch for the DTs. 09/10/20182363-95-aqaf-old female admitted for alcohol induced pancreatitis since yesterday she went into DTs she received several doses of IV Ativan, Haldol and Thorazine she is was placed on soft restraints. She is more calm more comfortable in the bed today. No acute events in the last 24 hours. 09/11/[id number]-minv-old female admitted with alcohol induced pancreatitis she is going through alcohol withdrawal for the last 48 hours DTs protocol was implemented. Patient is in soft restraints. No acute events in the last 24 hours. Afebrile. 09/12/[id number]-haat-old female admitted with alcohol induced pancreatitis lipase came down to 100. Went through alcohol withdrawal symptoms she is much more calm and comfortably with the bed. Psych consult was done the recommendation is BuSpar 5 mg p.o. twice daily under Effexor 37.5 mg p.o. daily. Psych recommendations are implemented. Reason For Visit: ACUTE ALCOHOLIC PANCREATITIS,ETOH ABUSE,COCAINE Physical Exam Vital Signs: Temp Pulse Resp BP Pulse Ox 97.3 F 98 18 124/74 96 09/12/18 08:46 09/12/18 08:46 09/12/18 08:46 09/12/18 08:46 09/12/18 08:46 Intake & Output 09/11/18 09/12/18 09/13/18 06:59 06:59 06:59 Intake Total 2531 3189 Balance 2531 3189 Weight 72.2 kg 70.2 kg General appearance: PRESENT: no acute distress Head exam: PRESENT: atraumatic Eye exam: PRESENT: PERRLA Mouth exam: PRESENT: moist, tongue midline Teeth exam: PRESENT: poor dentation Neck exam: ABSENT: carotid bruit, JVD, lymphadenopathy, thyromegaly Respiratory exam: PRESENT: clear to auscultation thanh. ABSENT: rales, rhonchi, wheezes Cardiovascular exam: PRESENT: RRR. ABSENT: diastolic murmur, rubs, systolic murmur GI/Abdominal exam: PRESENT: normal bowel sounds, soft. ABSENT: distended, guarding, mass, organolmegaly, rebound, tenderness Rectal exam: PRESENT: deferred Extremities exam: PRESENT: full ROM. ABSENT: calf tenderness, clubbing, pedal edema Neurological exam: PRESENT: alert, awake, oriented to person, oriented to place, oriented to time, oriented to situation, CN II-XII grossly intact. ABSENT: motor sensory deficit Psychiatric exam: PRESENT: appropriate affect, normal mood. ABSENT: homicidal ideation, suicidal ideation Results Laboratory Results: 09/12/18 04:13 09/12/18 04:13 09/12/18 09/12/18 04:13 04:13 WBC 5.6 RBC 3.93 Hgb 12.4 Hct 36.8 MCV 94 MCH 31.6 MCHC 33.8 RDW 12.7 Plt Count 308 Seg Neutrophils % 39.9 L Lymphocytes % 39.5 Monocytes % 14.1 H Eosinophils % 4.8 Basophils % 1.7 Absolute Neutrophils 2.2 Absolute Lymphocytes 2.2 Absolute Monocytes 0.8 Absolute Eosinophils 0.3 Absolute Basophils 0.1 Sodium 143.5 Potassium 3.8 Chloride 110 H Carbon Dioxide 26 Anion Gap 8 BUN 7 Creatinine 0.55 Est GFR ( Amer) > 60 Est GFR (Non-Af Amer) > 60 Glucose 100 Calcium 8.8 Magnesium 2.2 Total Bilirubin 0.3 AST 36 ALT 29 Alkaline Phosphatase 89 Total Protein 6.5 Albumin 3.1 L 09/05/18 09/05/18 06:50 06:50 Creatine Kinase 164 H CK-MB (CK-2) 0.97 Troponin I < 0.012 Impressions: Chest X-Ray 09/05/18 07:06 IMPRESSION: Bibasilar atelectasis. Assessment and Plan - Diagnosis (1) Acute alcoholic pancreatitis Qualifiers: Acute pancreatitis complication: unspecified Qualified Code(s): K85.20 - Alcohol induced acute pancreatitis without necrosis or infection Is this a current diagnosis for this admission?: Yes Plan: Improving. Tolerating clear liquid. Stating that has not passed flatus or had a bowel movement. Advance diet as tolerated. Continue volume resuscitation guided by volume statu s, opioid analgesics, monitor electrolytes and antiemetics. 09/07/[id number]-ynze-old female admitted with acute alcoholic pancreatitis. She is able to tolerate the clear liquids. Still on IV fluids and IV pain medications. On admission lipase is 7000+ plan to repeat the lipase tomorrow. Serum pota ssium is 3.3 to give potassium supplementation. Drug screen is positive for cocaine. 09/08/[id number]-btkf-old female admitted with acute alcoholic pancreatitis latest lipase is around 2190 improved from 6900 and the time of admission. Denies any complaints wants to eat a regular diet and plan is also decrease the IV fluids to 75 cc/h. 09/09/20186011-35-wfxy-old female admitted with acute alcoholic pancreatitis lipase this morning is more than 6000. Plan is to continue the IV fluids and continue to closely monitor the lipase levels. 09/10/2018-patient admitted with elevated lipase levels repeat lipase yesterday 6100 today's labs are pending. To check the lipase levels on daily basis. 09/11/20188007-24-fjqy-old female admitted with alcohol induced pancreatitis latest lipase level is around 241. Today's labs are pending. T-max of 99.3. Still tachycardic. no Complains of abdominal pains anymore. 09/12/20183887-01-jwgu-old female admitted with acute on chronic pancreatitis most likely secondary to alcohol abuse. Lipase level is 100. Plan is to discontinue IV fluids from today. (2) Abdominal pain Qualifiers: Abdominal location: epigastric Qualified Code(s): R10.13 - Epigastric pain Is this a current diagnosis for this admission?: Yes Plan: 09/07/2018-patient is still complaining of abdominal pain. Pain scale is 4-5/10. Patient is receiving IV morphine on as needed basis. Plan is to continue the present management. 09/08/2018-as per the patient abdominal pain is resolved. 09/09/2018-abdominal pain was resolved. 09/10/2018-patient came with complaints of abdominal pain most likely secondary to Acute on chronic pancreatitis. Abdominal pain is resolved. 09/11/2018-abdominal pain was resolved most likely secondary to acute on chronic pancreatitis. 09/12/2018-patient came in with abdominal pain most likely secondary to pancreatitis abdominal pain was resolved. (3) Cocaine abuse Is this a current diagnosis for this admission?: No (4) ETOH abuse Is this a current diagnosis for this admission?: Yes Plan: Current every day drinker. Drinks about 1-2 beers per day. Monitor for withdrawal. Thiamine and folic acid. Benzos as needed. 09/07/2018-patient is a current everyday drinker. She drinks heavily every day as per the patient. To monitor for the DTs. To give IV Ativan on as needed basis. Is to start on IV banana bag. 09/08/2018-patient admitted to drinking heavy alcohol. On daily basis. Presently on Ativan as needed if watching for the DTs. No acute events during the hospital stay. 09/09/20186493-49-svfa-old female admitted to drinking heavy alcohol on daily basis. Looks like she is started to have alcohol withdrawal symptoms. Started on Ativan 2 mg IV every 2 hours on Thorazine 25 mg IV every 6 hours. Plan is to continue to closely monitor her. Patient is expressing desire to go home and I convinced her to stay at least for another day. 09/10/2018-patient is going through DTs from yesterday sitter was present. P aidenient is on soft restraints. She is on Haldol as needed IV Ativan as needed and Thorazine IV every 8 hours. Start on banana bag daily. 09/11/2018-patient is still going through alcohol withdrawal symptoms patient is receiving Ativan as per protocol. She is on soft restraints. 09/12/2018-patient has history of heavy alcohol use she needs to join alcohol Anonymous groups. Psych recommendations are implemented. - Time Time Spent with patient: 25-34 minutes Smoking Cessation Education: over 10 minutes Medications reviewed and adjusted accordingly: Yes Anticipated discharge: Home
[2018-09-12] MEDS: VENLAFAXINE HCL 37.5 MG CAP.SR.24H PO SCH (12:15)
[2018-09-12] MEDS: IBUPROFEN 600 MG TABLET PO PRN (16:19)
[2018-09-12] MEDS: BANANA BAG (EDIT INGREDIENTS/RATE) IV SCH ×5 (18:14)
[2018-09-13] MEDS: IBUPROFEN 600 MG TABLET PO PRN ×2 (00:31→11:03)
[2018-09-13] MEDS: PANTOPRAZOLE SODIUM 40 MG TABLET.DR PO SCH (05:51)
[2018-09-13] MEDS: CHLORPROMAZINE HCL INJ 25 MG/1 ML AMPULE IV SCH (05:58)
[2018-09-13] MEDS ORDERED: LORAZEPAM INJ 2 MG/1 ML VIAL IV SCH (06:00)
[2018-09-13] MEDS: VENLAFAXINE HCL 37.5 MG CAP.SR.24H PO SCH (09:45)
[2018-09-13] MEDS: ASCORBIC ACID 500 MG TABLET PO SCH (09:45)
[2018-09-13] MEDS: ENOXAPARIN SODIUM INJ 40 MG/0.4 ML DISP.SYRIN SUBCUT SCH (09:45)
[2018-09-13] MEDS: BUSPIRONE HCL 10 MG TABLET PO SCH (09:45)
[2018-09-13 12:13] VITALS: BP 109/67
== END 2018-09-13 11:30 | disposition home or self-care (01) | DRG 440 ==
LOC: ER 05:22 → INTOOBSV 08:48 → EH 08:48 → 4N 09:38 → OBSVTOIN 09-07 10:00
PROVIDERS: ADMIT Internal Medicine; ATTEND Internal Medicine
DX: K85.20 Alcohol induced acute pancreatitis without necrosis or infection (principal); F10.10 Alcohol abuse, uncomplicated; F14.10 Cocaine abuse, uncomplicated; F17.210 Nicotine dependence, cigarettes, uncomplicated; Y90.9 Presence of alcohol in blood, level not specified
CPT/HCPCS: 36415; 71045; 80048; 80053; 80061; 80307; 81001; 82550; 82553; 83690; 83735; 84484; 85025; 85027; 93005; 93010; 96361; 96374; 96375; 99285; G0378; J1630; J1650; J2060; J2270; J2405; J2550; J3230; J3411; J3475; J3480; J3490; J7030